=== PATIENT | male | born 1955 | race Caucasian/White ===

== ENCOUNTER → 2019-08-01 11:55 | Outpatient (CLI) | payer BC, SELFPAY ==
--- NOTE | 2019-08-01 | DI.RAD.S_ITS ---
PROCEDURE: XR CHEST 2V INDICATIONS: COPD TECHNIQUE: 2 views of the chest were acquired. COMPARISON: None. FINDINGS: Surgical changes and devices: None. Lungs and pleura: Scattered subsegmental atelectasis and/or scarring. No focal consolidation. No pleural effusions or pneumothorax. Mediastinum: Mediastinal contours are normal. Heart size is normal. Bones and chest wall: No suspicious bony abnormalities. Soft tissues appear unremarkable. IMPRESSION: Scattered atelectasis/scarring. No definite focal consolidation. Dictated by: Merlin Hernandez M.D. on 08/01/2019 at 13:03 Approved by: Merlin Hernandez M.D. on 08/01/2019 at 13:08
== END ==
PROVIDERS: PCP Family Medicine; Visit Provider Family Medicine
DX: J44.9 Chronic obstructive pulmonary disease, unspecified (principal)
CPT/HCPCS: 71046

== ENCOUNTER → 2020-09-10 13:27 | Outpatient (CLI) | payer MEDICARE, SELFPAY ==
--- NOTE | 2020-09-10 | DI.RAD.S_ITS ---
PROCEDURE: XR SHOULDER RT MIN 2V INDICATIONS: BILTERAL SHOULDER PAIN TECHNIQUE: 3 views of the shoulder were acquired. COMPARISON: None. FINDINGS: Bones: No fractures or dislocations. No suspicious bony lesions. Visualized ribs appear intact. There are degenerative changes of the glenohumeral joint with joint space narrowing and subchondral sclerosis. There are also subchondral cystic changes. Soft tissues: No suspicious soft tissue calcifications. IMPRESSION: Degenerative changes of the right shoulder consistent with osteoarthritis. Dictated by: Alex Barnes M.D. on 09/10/2020 at 14:04 Approved by: Alex Barnes M.D. on 09/10/2020 at 14:07
--- NOTE | 2020-09-10 | DI.RAD.S_ITS ---
PROCEDURE: XR SHOULDER LT MIN 2V INDICATIONS: BILTERAL SHOULDER PAIN TECHNIQUE: 3 views of the shoulder were acquired. COMPARISON: None. FINDINGS: Bones: No fractures or dislocations. No suspicious bony lesions. Visualized ribs appear intact. There are degenerative changes of the glenohumeral joint with joint space narrowing and subchondral cystic changes. Soft tissues: No suspicious soft tissue calcifications. IMPRESSION: Degenerative changes of the glenohumeral joint with joint space narrowing and subchondral cystic changes. Dictated by: Alex Barnes M.D. on 09/10/2020 at 14:01 Approved by: Alex Barnes M.D. on 09/10/2020 at 14:03
--- NOTE | 2020-09-10 | DI.RAD.S_ITS ---
PROCEDURE: XR CERVICAL SPINE 2V OR 3V INDICATIONS: BILTERAL SHOULDER PAIN TECHNIQUE: 3 view(s) of the cervical spine were acquired. COMPARISON: None. FINDINGS: Bones: No fractures or dislocations to the T1 level. The lateral masses of C1 appear intact on the odontoid view. No suspicious bony lesions. Severe multilevel degenerative changes are seen, most prominent at C4, C5, and C6. There is disc space narrowing from C3-4 through C6-7, most severe at C4-5. Soft tissues: No prevertebral soft tissue swelling. IMPRESSION: 1. Multilevel degenerative changes. 2. Degenerative disc disease from C3-4 through C6-7, most severe at C4-5. Dictated by: Alex Barnes M.D. on 09/10/2020 at 13:57 Approved by: Alex Barnes M.D. on 09/10/2020 at 14:01
== END ==
PROVIDERS: PCP Family Medicine; Referring Provider Family Medicine; Visit Provider Family Medicine
DX: M54.10 Radiculopathy, site unspecified (principal); M25.511 Pain in right shoulder; M25.512 Pain in left shoulder; M47.812 Spondylosis without myelopathy or radiculopathy, cervical region; M50.31 Other cervical disc degeneration, high cervical region
CPT/HCPCS: 72040; 73030

== ENCOUNTER → 2021-01-25 13:54 | Outpatient (CLI) | payer MEDICARE, SELFPAY ==
--- NOTE | 2021-01-25 | DI.US.S_ITS ---
PROCEDURE: US PERIPH VENOUS LOW EXTREM LT INDICATIONS: Pain in leg, unspecified TECHNIQUE: Real-time imaging, as well as color and pulse Doppler interrogation, were performed of the lower extremity deep veins from the inguinal ligament to the popliteal fossa. COMPARISON: None. FINDINGS: The common femoral, femoral and popliteal veins are normally compressible, and free of intraluminal thrombus. Color and pulse Doppler demonstrate normal phasic intraluminal flow. There is normal augmentation response to distal compression maneuver. IMPRESSION: No deep venous thrombosis identified within the left lower extremity. Dictated by: Tad Huerta Sarath Interpreted: Misael Hamm MD on 01/25/2021 at 14:11 Transcribed by: JASMEET on 01/25/2021 at 14:12 Approved by: Misael Hamm M.D. on 01/25/2021 at 17:00
== END ==
PROVIDERS: PCP Family Medicine; Referring Provider Family Medicine; Visit Provider Family Medicine
DX: M79.605 Pain in left leg (principal)
CPT/HCPCS: 93971

== ENCOUNTER → 2021-07-31 13:33 | Outpatient (CLI) | payer MEDICARE, SELFPAY ==
--- NOTE | 2021-07-31 13:35 | DI.RAD.S_ITS ---
PROCEDURE: XR HIP W PEL IF DONE RT 2V INDICATIONS: RIGHT HIP PAIN TECHNIQUE: AP pelvis with lateral view(s) of the right hip(s). COMPARISON: None. FINDINGS: Bones: No fractures or dislocations. Pelvic ring appears intact. No suspicious bony lesions. Soft tissues: The visualized bowel gas pattern is normal. No suspicious soft tissue calcifications. IMPRESSION: No significant abnormality. Dictated by: Larry Mcclendon M.D. on 07/31/2021 at 14:36 Approved by: Larry Mcclendon M.D. on 07/31/2021 at 14:36
--- NOTE | 2021-07-31 13:35 | DI.RAD.S_ITS ---
PROCEDURE: XR LUMBAR SPINE 2-3V INDICATIONS: LOW BACK PAIN TECHNIQUE: 3 views of the lumbar spine were acquired. COMPARISON: None. FINDINGS: Bones: 5 ahs-vla-rgrzgtb vertebrae are present. There is mild L4-L5 anterolisthesis secondary to facet hypertrophy. There is mild L1-L2 and L3-L4 retrolisthesis secondary to facet hypertrophy. There is approximately 15? of convex left lumbar spine scoliosis. No vertebral body compression fractures. No suspicious bony lesions. Severe D12-L1, L1-L2 and L2-L3 degenerative disc disease. Moderate L3-L4 and L4-L5 degenerative disc disease. Mild L5-S1 degenerative disc disease. Moderate L1-L2, L2-L3, L3-L4, L4-L5 and L5-S1 facet hypertrophy. Soft tissues: Overlying bowel gas pattern is normal. No suspicious soft tissue calcifications. IMPRESSION: 1. Multilevel degenerative disc disease. 2. Multilevel facet arthropathy. 3. Convex left scoliosis. 4. Grade 1 L1-L2, L2-L3 and L4-L5 degenerative spondylolisthesis. 5. No fracture. No acute osseous lesion. If symptoms and/or clinical suspicion for pathology persists, evaluation with MRI should be considered for further assessment. Dictated by: Avril Ibanez MD, PhD on 07/31/2021 at 15:57 Approved by: Avril Ibanez MD, PhD on 07/31/2021 at 15:59
== END ==
PROVIDERS: PCP Family Medicine; Referring Provider Family Medicine; Visit Provider Family Medicine
DX: M51.36 Other intervertebral disc degeneration, lumbar region (principal); M51.37 Other intervertebral disc degeneration, lumbosacral region; M47.816 Spondylosis without myelopathy or radiculopathy, lumbar region; M47.817 Spondylosis without myelopathy or radiculopathy, lumbosacral region; M41.86 Other forms of scoliosis, lumbar region; M43.16 Spondylolisthesis, lumbar region; M25.551 Pain in right hip; M54.50 Low back pain, unspecified
CPT/HCPCS: 72100; 73502

== ENCOUNTER → 2021-09-07 11:20 | Outpatient (CLI) | payer MEDICARE, SELFPAY ==
--- NOTE | 2021-09-07 | DI.MRI.S_ITS ---
PROCEDURE: MR LUMBAR SPINE WO CON INDICATIONS: Spinal stenosis, lumbosacral region TECHNIQUE: Noncontrast sagittal T1 spin echo and T2 fast echo, sagittal STIR, axial T1 and T2 fast spin echo through the lumbar spine. In cases with scoliosis, additional coronal T2 fast spin echo may be performed. COMPARISON: [facility], CR, XR LUMBAR SPINE 2-3V, 07/31/2021, 13:30. FINDINGS: Image quality: Excellent. Alignment and Curvature: There is extensive degenerative change which in PACS alignment. There is mild degenerative retrolisthesis of L1 on L2. Grade 1 degenerative anterolisthesis of L4 on L5 measures 9 mm. There is mild levo curvature centered at L1-L2. Bone Marrow: Marrow is of normal overall signal. No acute vertebral body compression fractures. Spinal Cord: Conus medullaris terminates at the L1 level. Visualized cord demonstrates normal signal and size. Paraspinous Soft Tissues: No paravertebral masses. T12-L1: Severe disc height loss. Mild posterior disc osteophyte complex. Bilateral facet hypertrophy. No significant central canal stenosis. Tbyn-xm-batpvjkg right foraminal narrowing and moderate left foraminal narrowing. L1-L2: Severe disc height loss. Mild retrolisthesis of L1 on L2. Facet hypertrophy. Borderline canal stenosis. Moderate to severe right foraminal narrowing and moderate left foraminal narrowing with bilateral flattening deformity on the exiting bilateral L1 nerve roots. L2-L3: Moderate disc height loss. Posterior disc osteophyte complex. Facet and ligament hypertrophy. Tkpt-it-filcjecr canal stenosis. Moderate right foraminal stenosis with flattening deformity on the exiting right L2 nerve root. Mild left foraminal stenosis. L3-L4: Disc bulge and prominent facet and ligament hypertrophy results in severe canal stenosis. There is moderate right foraminal narrowing and moderate to severe left foraminal narrowing. There is flattening deformity on the exiting right L3 nerve root. There is impingement on the exiting left L3 nerve root. L4-L5: Grade 1 anterolisthesis of L4 on L5. Posterior disc bulge. Prominent bilateral facet and ligament hypertrophy. Marked canal stenosis. Moderate to severe bilateral foraminal narrowing with impingement on the exiting bilateral L4 nerve roots. L5-S1: Disc bulge. Facet hypertrophy. No canal stenosis. Mamz-oc-vjgacunf bilateral foraminal stenosis. IMPRESSION: 1. Extensive degenerative change. Findings include prominent multilevel facet arthropathy. 2. Significant multilevel canal stenosis. Canal stenosis is mild to moderate at L2-L3, severe at L3-L4, and marked at L4-L5. 3. Significant multilevel foraminal narrowing as described above. Dictated by: Jose Flowers M.D. on 09/09/2021 at 8:52 Approved by: Jose Flowers M.D. on 09/09/2021 at 9:23
== END ==
PROVIDERS: PCP Family Medicine; Referring Provider Orthopaedic Surgery; Visit Provider Orthopaedic Surgery
DX: M48.07 Spinal stenosis, lumbosacral region (principal); M47.816 Spondylosis without myelopathy or radiculopathy, lumbar region; M48.061 Spinal stenosis, lumbar region without neurogenic claudication; M51.26 Other intervertebral disc displacement, lumbar region
CPT/HCPCS: 72148

== ENCOUNTER → 2021-10-04 10:36 | Outpatient (CLI) | payer MEDICARE, SELFPAY ==
[2021-10-04 11:47] LABS: Add Manual Diff / Slide Review NO; Basophils Absolute Auto 100 /uL (0-100); Basophils Percent Auto 1.3 % (0-2); Eosinophils Absolute Auto 0 /uL (0-450); Eosinophils Percent Auto 1.3 % (2-4); Hematocrit 39.4 % (41-53); Hemoglobin 13.8 g/dL (13.5-17.5); Lymphocytes Absolute Auto 1100 /uL (1100-4500); Lymphocytes Percent Auto 29.5 % (25-40); Mean Corpuscular HGB Conc 35.1 % (30-36); Mean Corpuscular Hemoglobin 33.6 PG (26-34); Mean Corpuscular Volume 95.9 fL (80-100); Monocytes Absolute Auto 500 /uL (0-900); Monocytes Percent Auto 13.9 % (3-14); Neutrophils Absolute Auto 2000 /uL (1500-7000); Platelet Count 280 X10^3/uL (150-400); Red Blood Cell Count 4.11 X10^6/uL (4.5-5.9); Red Cell Distribution Width 13.4 % (11.6-14.8); White Blood Cell Count 3.8 X10^3/uL (4.5-11.0)
[2021-10-04 12:25] LABS: BUN Creatinine Ratio 24.4 (6-22); Blood Urea Nitrogen 20 mg/dL (9-20); Calcium 9.6 mg/dL (8.4-10.2); Carbon Dioxide 29 mmol/L (22-32); Chloride 99 mmol/L (98-107); Estimated Glomerular Filt Rate > 60.0 mL/min (>60); Glucose 84 mg/dL (80-110); HEMOLYSIS < 15 (0-50); Potassium 4.7 mmol/L (3.4-5.1); Sodium 135 mmol/L (137-145)
== END ==
PROVIDERS: PCP Family Medicine; Referring Provider Orthopaedic Surgery Orthopaedic Surgery of the Spine; Visit Provider Orthopaedic Surgery Orthopaedic Surgery of the Spine
DX: Z01.818 Encounter for other preprocedural examination (principal); Z01.812 Encounter for preprocedural laboratory examination
CPT/HCPCS: 36415; 80048; 85025; 93005; 93010

== ENCOUNTER → 2021-10-08 12:25 | Outpatient (CLI) | payer MEDICARE, SELFPAY ==
--- NOTE | 2021-10-08 | DI.CT.S_ITS ---
PROCEDURE: CT LUMBAR SPINE WO CON INDICATIONS: Spinal stenosis, lumbar region TECHNIQUE: Noncontrast 3 mm thick sections acquired from the T12 level to the sacrum. Sagittal and coronal reformats were constructed. Additional 0.8 mm axial images were reformatted for intraoperative localization. For radiation dose reduction, the following was used: automated exposure control. COMPARISON: [facility], MR, MR LUMBAR SPINE WO CON, 09/07/2021, 11:35. [facility], CR, XR LUMBAR SPINE 2-3V, 07/31/2021, 13:30. FINDINGS: Image quality: Excellent. Bones: No acute vertebral body compression fractures. No suspicious lytic or blastic bony lesions. No pars defects. Mild levoconvex scoliotic curvature is noted. There is minimal retrolisthesis seen at T12-L1. Mild retrolisthesis is seen at L1-L2. Minimal retrolisthesis is seen at L2-L3. Mild grade 1 anterolisthesis is seen at L4-L5, without associated pars defects. T12-L1: Moderate to severe loss of disc height is seen. Endplate irregularity and sclerosis can be seen. Bridging endplate osteophytes are seen. Mild to moderate disc bulge is seen. There is moderate left-sided and byoo-th-ypzytojb right-sided neural foraminal narrowing. Mild central canal narrowing is seen. L1-L2: Moderate to severe loss of disc height is seen. Vacuum disc phenomenon is seen at this level. Bridging endplate osteophytes are seen. Endplate irregularity and sclerosis can be seen. Moderate generalized disc bulge is seen. Mild facet joint hypertrophy is seen. There is moderate to severe bilateral neural foraminal narrowing seen, right worse than left. Mild central canal narrowing is seen. L2-L3: Moderate to severe loss of disc height can be seen on the right side. Partially bridging endplate osteophytes are seen on the right side. Vacuum disc phenomenon is seen at this level. At least moderate disc bulge is seen, which is eccentric to the right. There is a superimposed central disc protrusion. Posteriorly projected endplate osteophytes are seen. There is moderate to severe right-sided and at least moderate left-sided neural foraminal narrowing. At least moderate central canal narrowing is seen at this level. L3-L4: At least moderate loss of disc height can be seen on the left side. Endplate irregularity and sclerosis can be seen. Vacuum disc phenomenon is seen at this level. There is at least moderate disc bulge. At least moderate facet hypertrophy is seen. There is moderate to severe bilateral neural foraminal narrowing. There is moderate to severe central canal narrowing seen at this level. L4-L5: There is at least moderate loss of disc height. Vacuum disc phenomenon is seen at this level. Prominent facet hypertrophy is seen. There is moderate to severe bilateral neural foraminal narrowing. Moderate to severe central canal narrowing is seen at this level. L5-S1: The disc height is well preserved. At least moderate disc bulge is seen, which is eccentric to the left. Partially bridging endplate osteophytes are seen on left side, as on series 5, image 24. There is moderate left-sided and mild right-sided neural foraminal narrowing. Mild central canal narrowing is seen. Soft tissues: No retroperitoneal masses or hematomas. Visualized aorta is normal in caliber. IMPRESSION: Multiple levels of lumbar spine degenerative change are seen, which are overall worst at L3-L4 and L4-L5. The degenerative changes are overall better seen on the recent prior MRI examination. Dictated by: Jefferson Hall M.D. on 10/08/2021 at 13:02 Approved by: Jefferson Hall M.D. on 10/08/2021 at 13:11
== END ==
PROVIDERS: PCP Family Medicine; Referring Provider Orthopaedic Surgery Orthopaedic Surgery of the Spine; Visit Provider Orthopaedic Surgery Orthopaedic Surgery of the Spine
DX: M48.062 Spinal stenosis, lumbar region with neurogenic claudication (principal); M47.816 Spondylosis without myelopathy or radiculopathy, lumbar region
CPT/HCPCS: 72131

== ENCOUNTER → 2021-11-22 14:29 | Outpatient (CLI) | payer MEDICARE, SELFPAY ==
[2021-11-22 15:22] LABS: COVID19 -Nasal RAPID Negative (Negative)
== END ==
PROVIDERS: PCP Family Medicine; Visit Provider Family Medicine Sleep Medicine
DX: Z20.822 Contact with and (suspected) exposure to COVID-19 (principal)
CPT/HCPCS: 87635; C9803

== ENCOUNTER 2021-11-26 13:00 | Observation (INO) | payer MEDICARE, SELFPAY ==
[2021-11-20 12:49] VITALS: BMI 28.0
[2021-11-25] VITALS (14 sets, daily range): BP systolic 100–143; BP diastolic 64–89; PULSE 70–101; RESP 10–18; TEMP 36.4–36.7; O2SAT 92–100; BMI 28.0
--- NOTE | 2021-11-25 | DI.RAD.S_ITS ---
PROCEDURE: XR LUMBAR SPINE 2-3V INDICATIONS: L3-4 L4-5 TLIF TECHNIQUE: 2 views of the lumbar spine were acquired. COMPARISON: None. FINDINGS: Bones: Postsurgical changes compatible with L3-L4 and L4-L5 TLIF. Orthopedic hardware is in expected position. Soft tissues: Overlying bowel gas pattern is normal. No suspicious soft tissue calcifications. IMPRESSION: Expected postsurgical change for L3-L4 and L4-L5 TLIF. Dictated by: Avril Ibanez MD, PhD on 11/25/2021 at 17:19 Approved by: Avril Ibanez MD, PhD on 11/25/2021 at 17:25
[2021-11-25] MEDS: LACTATED RINGERS 1,000 ML 84 ML IV ×2 (07:07→09:43)
--- NOTE | 2021-11-25 07:45 | PM.PREOP ---
Pre-operative Note COVID-19 COVID-19 status: Negative Result date/Date tested (Pos, Neg/Pending): 11/24/21 Criteria for continued procedure: Expected advancement of disease process, Possibility delay results in more complex future surgery or treatment, Increased loss of function, Continuing or worsening of significant or severe pain, Deterioration of the patient's condition or overall health and Delay expected to result in less-positive ultimate med/surg outcome Interval Note History & Physical reviewed/Exam performed by Physician: Yes Changes to H&P: No
[2021-11-25] MEDS: CEFAZOLIN 2 GM/20 ML SYRINGE IV ×3 (08:00→23:20)
--- NOTE | 2021-11-25 08:42 | SUR.OPER ---
Prone on spine table, head in foam head support, padded chest and pelvic supports, gel pad at knees, lower legs supported by pillows; nipples, genitalia and toes free of pressure, arms secured on foam padded arm boards at <90 degrees abduction. Tape over blanket at thigh secured to table. Gel pad placed between bilateral heels.
[2021-11-25] MEDS: BUPIVACAINE 0.25% (PF) 60 ML, EPINEPHrine 0.3 MG INJ (08:49)
[2021-11-25] MEDS: BUPIVACAINE LIPOSOME 266 MG/20 ML VIAL INJ (08:49)
--- NOTE | 2021-11-25 12:44 | P.OP_ITS ---
Operative Date/Time/Diagnoses Date of procedure: 11/25/21 Time of procedure: 07:45 Pre-op diagnosis: 1. L4-5 spondylolisthesis 2. L3-4, L4-5 spinal stenosis with neurogenic claudication Post-op diagnosis: same Procedure & Clinicians Procedure: 1. L3-4, L4-5 Postero-lateral and posterior interbody fusion 2. L3-4, L4-5 interbody cage placement. 3. L3-4, L4-5 decompressive laminectomy with bilateral facetecomies 4. L3-4, L4-5 Posterior segmental instrumentation 5. [place] of bone marrow from iliac crest 6. Utilization of microsurgical technique and operating microscope 7. Utilization of robotic assisted navigation Same procedure as scheduled: Yes Indications: Patient has been having chronic back pain and worsening lumbar radiculopathy. Patient failed multiple conservative management with worsening pain weakness and numbness in her lower extremity. Patient has been having difficulty performing activity of daily living. After discussing risks benefits of treatment options, patient elected proceed with surgery. Surgeon: Mohit Chatterjee Videogame Designer: Mimi Sanders Click Yes if Unassisted: No Anesthesia Type: General Operative Notes Closure Type: primary Specimen(s): none sent Prosthetic devices, grafts, tissues, transplants, or devices: Globus CREO MIS screws, Rise cages Applied: catheter Estimated Blood Loss (mL): 250 Blood products transfused: none Procedure in detail: Patient was seen in the preoperative area. Risks and benefits of the surgery was discussed with the patient. Informed consent was obtained from the patient and placed in the chart. Surgical site was marked. Patient was taken to the operative room. General anesthesia was administered. Prophylactic antibiotic was given to the patient less than 30 min before the incision was made. Patient was placed into a prone position on the Deejay table. Patient's back was then prepped and draped in the sterile fashion. Time-out was performed at this time. After patient was prepped and draped, patient's PSIS was palpated and marked bilaterally. Small 1 cm incision was made over the PSIS for placement of the reference probes. Two trocar was placed into the PSIS 1 on each side. The reference probe was attached to the trocar of the reference apparatus. At this time the C-arm imaging was used to confirm AP and lateral of L3, L4-L5 vertebrae and merged the C-arm imaging using the [employer] robotic navigation system with the CT of the lumbar spine. After successful merging was completed and confirmed, skin marker was used to brandy out the skin incision using the [employer] robotic arm. Bilateral incision was made at this time. Pre templated trajectory was used and guided using the [employer] robotic navigation system for bilateral L3 L4, L5 pedicle screw placement. This was done by using the robotic arm to guide the high-speed bur to make a cortical entry point. Next a drill was placed also using the robotic arm and guided using the navigation system drilling partially through bilateral L3, L4, L5 pedicles. Next L3, L4, L5 pedicle screws it was pre templated and measured was placed onto the power compressed air pile driver operator and inserted into the pedicles bilaterally. After all 6 screws were placed C-arm imaging was taken of both AP and lateral to confirm the placement. Excellent placement of the screws were confirmed and a matched precisely with the pre planned screw placement using the navigation system. MARs retractor was inserted using [employer] guidence. Globus MARS retractors was placed inside the incision and docked onto the L3, L4 lamina. Using microsurgical technique and operating microscope, a L3, L4 laminectomy and L3-4, L4-5 facetectomy was performed using a Kerrison rongeur. Patient was found have severe central, lateral recess and neural foramen stenosis which was fully decompressed after the laminectomy and facetectomy. More than 75% of the facets were removed during the process of decompression rendering L3-4, L4-5 level grossly unstable and required a fusion procedure at the same time. The disc space at L3-4, L4-5 was identified, and a total diskectomy was performed at L3-4, L4-5 level. The endplates were decorticated using a rasp and shaver. The total diskectomy and decortication was performed at L3-4, L4-5 level in order to to accomplish a L3-4, L4-5 fusion. The local bone from the laminectomy and facetectomy was saved for local bone grafting. After the total diskectomy and decortication was completed, Trifecta bone graft material was combined with local bone that was harvested earlier. At this time, a separate skin is incision was made over the iliac crest. A Jamshidi needle was inserted into the iliac crest through a separate skin incision. 5 cc of bone marrow aspiration was obtained through the separate skin incision using a Jamshidi needle from the iliac crest. The bone marrow aspiration was combined with local bone and the Trifecta bone grafting material. The bone grafting material was placed into the L3-4, L4-5 interbody space along with expandable cages. One cage each was inserted into the L3-4 L4-5 interbody space along with bone graft material. The cage was expanded to its maximum height using the torque limiting screwdriver. The disc preparation as well as the cage insertion were also performed under navigation guidance. After the cage was placed, AP and lateral C-arm imaging was taken to confirm placement of the cage and excellent position was confirmed. Globus MARS retractor was inserted and docked onto the L3-4, L4-5 posterolateral gutter on the right side. Using the power drill, posterior-lateral decortication was performed at L3-4, L4-5 level until bleeding cortical bone was identified. The remaining bone grafting material was placed into the L3-4, L4-5 posterior lateral gutter he order to accomplish posterolateral fusion at the L3- 4, L4-5 level. At this time the tulips were attached to the L3, L4-L5 pedicle screw shanks. After measuring the length of the rods, they were inserted into the tulips of the pedicle screws and locked in place using locking caps and torque limiting screwdriver bilaterally. Total 6 caps and 2 titanium rods was used in order to complete the posterior instrumentation construct. After all the hardware was placed, and confirmed with AP and lateral C-arm imaging, the wound was then irrigated with sterile normal saline and packed with Ray-Murphy gauze for 3 min to accomplish hemostasis. After the gauze was removed the deep fascia was closed with #1 Vicryl suture. The subcutaneous layer was closed with 2-0 Vicryl. The skin was closed with skin adore. Patient tolerated the procedure well. There were no complications. Neuro monitoring system was used to monitor patient's neurologic status throughout entire procedure. There was no disturbance of the neural monitoring signals throughout the case. Complications: none Post-operative Condition: stable Disposition: PACU Plan for aftercare: Admit to inpatient hospital
[2021-11-25] MEDS: HYDROMORPHONE 2 MG INJ IV ×3 (13:03→13:22)
[2021-11-25] MEDS: hydrOXYzine 50 MG/ML INJ IM (13:29)
[2021-11-25] MEDS: OXYCODONE/ACETAMINOPHEN 5/325 TABLET 1 TAB PO (13:39)
--- NOTE | 2021-11-25 13:58 | SUR.PHASEI ---
Report called to floor, RN informed of puffiness/swelling bilateral back, soft, no noticeable margins; areas checked by Dr. Chatterjee approx 20 minutes ago. VSS. Dozes intermittantly.
--- NOTE | 2021-11-25 14:24 | SUR.PHASEI ---
1315 late entry Patient assisted in turning to right side for position of comfort. Large puffy area left of the dressing, no bruising, no margins, tissue soft, also examined by Isaiah Mishra RN. Lesser puffiness on right side. Will consult Dr. Chatterjee when he is available.
--- NOTE | 2021-11-25 14:27 | SUR.PHASEI ---
1403 Patient taken to room 213, bed down and locked, call light within reach. Back dressing remains CDI, puffy areas shown to RN. VSS Family at bedside. Patient dozing when he wasn't being moved. Patient currently on room air, RN wants to access on RA prior to determining if O2 is needed. 1428 Patient clothing bag taken to the room.
--- NOTE | 2021-11-25 14:29 | SUR.PHASEI ---
one+ liter IV fluid infused in the OR, not scanned
[2021-11-25] MEDS: OXYCODONE IR 5 MG TABLET 10 MG PO ×3 (15:37→22:17)
--- NOTE | 2021-11-25 15:37 | PT-IP ANOTE ---
Received PT orders and reviewed the chart. Met with pt briefly who was quite groggy and reporting 8/10 pain. Plan to follow up Thursday AM for PT evaluation.
[2021-11-25] MEDS: SODIUM CHLORIDE 0.9% 1,000 ML 100 ML IV (15:39)
[2021-11-25] MEDS: POLYVINYL ALCOHOL DROPS 1 DROPS EYE-BOTH ×2 (16:24→19:24)
[2021-11-25] MEDS: ACETAMINOPHEN 325 MG TABLET 650 MG PO (19:21)
[2021-11-25] MEDS: SENNOSIDES 8.6 MG TABLET 17.2 MG PO (21:23)
[2021-11-25] MEDS: DOCUSATE 100 MG CAPSULE PO (21:23)
[2021-11-25] MEDS: hydrOXYzine pamoate 25 MG CAPSULE PO (22:53)
[2021-11-26 00:27] VITALS: BP 111/55; PULSE 88; RESP 18; TEMP 36.7; O2SAT 97
[2021-11-26] MEDS: OXYCODONE IR 5 MG TABLET 10 MG PO ×5 (01:50→20:53)
[2021-11-26] MEDS: SODIUM CHLORIDE 0.9% 1,000 ML 100 ML IV (01:51)
[2021-11-26] MEDS: hydrOXYzine pamoate 25 MG CAPSULE PO ×2 (03:32→15:55)
[2021-11-26 04:30] LABS: Hematocrit 32.1 % (41-53); Hemoglobin 11.3 g/dL (13.5-17.5)
[2021-11-26 05:00] VITALS: BP 119/66; PULSE 76; RESP 18; TEMP 36.6; O2SAT 97
[2021-11-26] MEDS: PANTOPRAZOLE DR 40 MG TABLET PO (05:34)
--- NOTE | 2021-11-26 07:34 | PM.PNPO.1 ---
Subjective Subjective Date Patient Seen: 11/26/21 Time Patient Seen: 07:34 Interval history: Patient is complaining of [id number] low back pain this morning, he rates it a 3 to 4/10. He has just received oxy 10 which is helping significantly this pain. He has been able to work with physical therapy yesterday. He is hoping to be discharged home, likely tomorrow. Exam Vital Signs (past 8 hours): - 11/26/21 00:27 11/26/21 05:00 Temperature 98.0 F 97.8 F Pulse Rate 88 76 Respiratory Rate 18 18 Blood Pressure 111/55 L 119/66 Pulse Oximetry 97 97 Oxygen Delivery Method Room Air Oxygen Flow Rate 0 Narrative Exam Narrative: Pleasant 66-year-old male, resting comfortably in bed, no acute distress. Dressing demonstrates left lateral serosanguineous drainage and mild right lateral serosanguineous drainage. No surrounding erythema or induration. Bilateral lower extremity: Motor functions are grossly intact, sensation is slightly decreased in his left lower extremity as compared to his right, calves are soft and nontender to palpation. Objective Labs Result Diagrams: 11/26/21 04:05 Labs: Laboratory Results - last 24 hr 11/26/21 04:05 Hgb 11.3 L Hct 32.1 L PFSH Medical History Acid reflux Arthritis Easy bruisability Macular degeneration of right eye CHRISTIAN (obstructive sleep apnea) Prostate cancer (2015) Surgical History History of prostatectomy (2015) Hx of bilateral cataract extraction Hx of hernia repair Hx of tonsillectomy S/P epidural steroid injection Social History household members: spouse Smoking Status: Former smoker alcohol intake: current Assessment & Plan Post-op Postoperative Procedures: Procedures Operation Date: 11/25/21 07:45 Actual Procedure Side Surgeon p L3-4, L4-5 TLIF w. posterior instrumentation-Robot Not Applicable Mohit Chatterjee MD Postoperative day: 1 Postoperative status: doing well Postoperative status narrative: Stable status post L3-4, L4-5 TLIF Postoperative plan narrative: -mobilize with PT. Weightbearing as tolerated front wheel walker. Limit bending, lifting, twisting x6 weeks -continue with multimodal pain management, encouraged more frequent use of medication as needed -DC to home, possibly this evening if he does great with physical therapy and pain is manageable, however, likely tomorrow
[2021-11-26] MEDS: DOCUSATE 100 MG CAPSULE PO ×2 (08:27→20:54)
[2021-11-26] MEDS: FISH OIL 1,000 MG CAPSULE 1000 MG PO (08:28)
[2021-11-26] MEDS: LACTOBACILLUS ACIDOPHILUS TABLET 1 EACH PO (08:28)
[2021-11-26 08:37] VITALS: BP 118/72; PULSE 70
--- NOTE | 2021-11-26 09:40 | PT.IIE ---
Current Diagnoses Spondylolisthesis, lumbar region (11/25/21) Spinal stenosis, lumbar region with neurogenic claudication (11/25/21) Surgery Performed Operation Date: 11/25/21 07:45 Actual Procedures p L3-4, L4-5 TLIF w. posterior instrumentation-Robot(Not Applicable) - Mohit Chatterjee MD Medical History (Last Reviewed 11/26/21 @ 07:35 by Mimi Sanders PA-C) Acid reflux Arthritis Easy bruisability Macular degeneration of right eye CHRISTIAN (obstructive sleep apnea) Prostate cancer (2016) Physical Therapy Inpatient Evaluation/Re-Eval M1 PT/OT-IP Prior Functional Status Start: 11/26/21 12:29 Freq: NEEDED Status: Active Protocol: Document 11/26/21 09:40 AB (Rec: 11/26/21 12:42 AB [id number]) Medical Review Prior Functional Status Medical History Reviewed Yes Communication able to make needs known Mobility and Gait pt stated that he is independent with all moblities and ambulation without AD; stated that he is very active Social History Household Members spouse Living Arrangements House Number of Floors (Floors) Two Floors Number of Stairs To Enter/Railing? pt stated that he does not have any steps to enter the house but has 15 steps L rail to get up to the main living area Home Environment Standard Height Toilet,High Toilet,Walk in Shower,Built-In Shower Seat Home Equipment Front Wheel Walker,Raised Toilet Seat w/Armrests,Hand Held Shower M2 PT-IP Current Condition Start: 11/26/21 12:29 Freq: NEEDED Status: Active Protocol: Document 11/26/21 09:40 AB (Rec: 11/26/21 12:42 AB [email or web address]) Physical Therapy Current Condition Current Condition Evaluation Date 11/26/21 Treatment Diagnosis s/p L3-4, L4-5 TLIF; difficulty in walking Onset Date 11/25/21 M3 PT-IP Subjective Start: 11/26/21 12:29 Freq: NEEDED Status: Active Protocol: Document 11/26/21 09:40 AB (Rec: 11/26/21 12:42 AB [email or web address]) Subjective Physical Therapy Visit Type Type Initial Evaluation Visit Start Time 09:40 Visit Stop Time 10:15 Total Visit Minutes 35 Number of FIBER MACHINE TENDER Visits 0 Physical Therapy Visit Comments Patient Comments agreeable to do PT Therapy Pain Assessment Pain When Pain Assessed At Rest Pain Present Pain Present Pain Reported Location Lower Back Intensity 3 Scale Used 4-5/10 with mobility Pain Behaviors Guarding Pain Management Techniques Distraction,Re-positioning, Timing of Activity with Medications M4 PT-IP Mobility and Gait Start: 11/26/21 12:29 Freq: NEEDED Status: Active Protocol: Document 11/26/21 09:40 AB (Rec: 11/26/21 12:42 AB [id number]) PT-Bed Mobility Assessment Rolling Type of Rolling Log Rolling Level of Assist Standby Assistance Supine to Sit Supine to Sit Minimal Assistance PT-Transfer Assessment Sit to and From Stand Sit to and from Stand Maximum Assistance,1 Person Assistance,Use of Upper Extremities Equipment Transfer Assistive Device Gait Belt,Front Wheeled Walker Orthotic/Prosthetic Devices or Brace: No Transfers Transfer Destination Chair Transfer Technique Stand Step Pivot Transfer Ability Level of Assist Maximum Assistance,1 Person Assistance,Use of Upper Extremities Comments Mobility Comments educated pt on back precautions and log roll bed mobility. pt completed log roll supine <>sit min A and cues. pt ablet o sit on EOB SBA. completed sit to stand max A and max cues. (+) unsteadiness completed step transfer to chair max A x 1 and max cues with (+) L knee buckling during transfers requireing max A for recovery and steadiness. educated pt on quads activation during standing/ambulation. completed sit to stand from the chair max A and cues and ambulated in room ~ 15 ft using FWW max A and max cues. (+) L knee buckling x 2. pt agreed to stay up on the chair . positioned on the chair. educated on LE exercises. call light and table placed within reach. Gait Assessment Gait Gait Assistance Required: Maximum Assistance Distance (Feet) 15 Able to Maintain Weight Bearing Status Yes During Gait Assistive Devices Assistive Device Gait Belt,Front Wheeled Walker Orthotic/Prosthetic Devices or Brace: No Gait Deviations General Gait Pattern Antalgic,Decreased Stride Length Factors Limiting Gait Function Factors Limiting Gait Function Decreased Activity Tolerance, Decreased Strength,Limited Range of Motion,Pain,Poor Balance,Poor Safety Awareness PT-Balance Assessment Sitting Balance and Reactions Static Sitting Balance Ability Good Dynamic Sitting Balance Ability Good Standing Balance and Reactions Static Standing Balance Ability Poor Dynamic Standing Balance Ability Poor Device Used FWW M5 PT-IP Objective Assessments Start: 11/26/21 12:29 Freq: NEEDED Status: Active Protocol: Document 11/26/21 09:40 AB (Rec: 11/26/21 12:42 AB [id number]) Orientation Orientation/Cognition Level of Alertness Alert Orientation Name,Place,Situation Safety Awareness Decreased Safety Awareness Memory Description No Deficits Noted Gross Range of Motion Lower Extremity ROM Assessment Within Functional Limits Strength Lower Extremity Strength Assessment Bilaterally Impaired Comments Strength Comments LLE: 4-/5 RLE: 3+/5 Muscle Tone Muscle Tone WNL Yes M6 PT-IP Treatment Start: 11/26/21 12:29 Freq: NEEDED Status: Active Protocol: Document 11/26/21 09:40 AB (Rec: 11/26/21 12:42 AB [id number]) Physical Therapy Treatment Education Education Provided Precautions,Weight Bearing Status,Post-Op Packet,Safety M7 PT-IP Assessment and Plan Start: 11/26/21 12:29 Freq: NEEDED Status: Active Protocol: Document 11/26/21 09:40 AB (Rec: 11/26/21 12:42 AB [id number]) PT Summary Assessment and Plan Potential Rehabilitation Potential Fair Status of Condition at Evaluation Evolving Summary Impairments Pain,ROM,Strength,Balance, Coordination,Sensation,Tone, Cognition,Bed Mobility, Transfers,Gait,Activity Tolerance Assessment Summary pt requiring max A with mobility using FWW with (+) L knee buckling during standing and ambulation. caregiver training set up for tomorrow at 10 am. will continue to assess progress. Goals Bed Mobility Goal Independent Transfer Goal Independent,Front Wheeled Walker Gait Goal Independent,Front Wheel Walker Gait Distance 200 Other Goals up/down 15 steps L rail ascending SBA Days to Meet Goals 10 Frequency of Treatment Frequency Of Treatment Twice a Day Treatment Plan Physical Therapy Treatment Plan Bed Mobility Training,Transfer Training,Gait Training, Therapeutic Exercise,Balance Retraining,Post Op Education, Discharge Planning,Hot or Cold Pack,Neuromuscular Re-ed, Coordination Retraining,Manual Therapy Other Recommendations and Next Treatment caregiver trainin11/27/21 @ [facility] 10 am Precautions Lumbar Precautions Log Roll,No Twisting,Limit Bending,Lifting Restriction of 10 lbs,Gait Belt above Incisional Area Recommendations To Nursing Amount of Assist Needed 2 Person Assist Discharge Recommendations PT Discharge Recommendations Home with 24/7 Assist Available,Home Health,SNF Rehab,Home vs SNF Transportation Needs at Discharge Private Vehicle,Wheelchair/ Cabulance
[2021-11-26 11:52] VITALS: BP 126/64; PULSE 71; RESP 18; O2SAT 98
--- NOTE | 2021-11-26 12:03 | OT.IP.EVAL ---
Current Diagnoses Spondylolisthesis, lumbar region (11/25/21) Spinal stenosis, lumbar region with neurogenic claudication (11/25/21) Surgery Performed Operation Date: 11/25/21 07:45 Actual Procedures p L3-4, L4-5 TLIF w. posterior instrumentation-Robot(Not Applicable) - Mohit Chatterjee MD Past Medical History (Last Reviewed 11/26/21 @ 07:35 by Mimi Sanders PA-C) Acid reflux Arthritis Easy bruisability History of prostatectomy (2015) Hx of bilateral cataract extraction Hx of hernia repair Hx of tonsillectomy Macular degeneration of right eye [facility]RISTIAN (obstructive sleep apnea) Prostate cancer (2016) S/P epidural steroid injection Surgical History (Last Reviewed 11/26/21 @ 07:35 by Mimi Sanders PA-C) History of prostatectomy (2015) Hx of bilateral cataract extraction Hx of hernia repair Hx of tonsillectomy S/P epidural steroid injection Occupational Therapy Inpatient Evaluation/Re-Eval M1 PT/OT-IP Prior Functional Status Start: 11/26/21 12:05 Freq: NEEDED Status: Active Protocol: Document 11/26/21 11:34 [facility] (Rec: 11/26/21 12:22 [facility] [id number]) Medical Review Prior Functional Status Medical History Reviewed Yes Communication Independent Mobility and Gait Pt states able to walk 3.5 miles daily 6x/wk. Activities of Daily Living and IADL's Pt states was completely independent with all his ADl and IADL, however would really be in pain the next couple of days after mowing the lawn and other chores at home Social History Household Members spouse Living Arrangements House Number of Floors (Floors) Two Floors Number of Stairs To Enter/Railing? 15 steps total with 3 steps with left rail, landing, and then another 12 steps with left rail to the upstairs. Pt states able to stay on the main level if needed as has a full bath there as well. Home Environment Standard Height Toilet,Walk in Shower Home Equipment Front Wheel Walker,Raised Toilet Seat w/Armrests,Hand Held Shower Additional Social History Comment Built in seat upstairs and would benefit from shower chair for downstairs bathroom. Pt states that his is able to assist but not able to do much lifting. M2 OT-IP Current Condition Start: 11/26/21 12:05 Freq: Status: Active Protocol: Document 11/26/21 11:34 [facility] (Rec: 11/26/21 12:22 [facility] [id number]) Occupational Therapy Current Condition Current Condition Evaluation Date 11/26/21 Treatment Diagnosis S/p L3-4, L4-5, decreased mobility Diagnosis Onset Date 11/25/21 Post Operative Precautions Lumbar Precautions Log Roll,No Twisting,Limit Bending,Lifting Restriction of 10 lbs,Gait Belt above Incisional Area M3 OT- IP Subjective and Pain Start: 11/26/21 12:05 Freq: Status: Active Protocol: Document 11/26/21 11:34 [facility] (Rec: 11/26/21 12:22 [facility] [id number]) OT- Subjective Occupational Therapy Visit Type Type Initial Evaluation Visit Start Time 11:34 Visit Stop Time 12:03 Total Visit Minutes 37 Occupational Therapy Visit Comments Patient Comments Pt agreed to get up to the recliner for lunch. Patient/Caregiver Goals TO go home. OT Pain Assessment Pain When Pain Assessed At Rest Pain Present Pain Present Pain Reported Location Lower Back Intensity 4 Scale Used Numeric (0 - 10) M4 OT- IP ADL's Start: 11/26/21 12:05 Freq: Status: Active Protocol: Document 11/26/21 11:34 [facility] (Rec: 11/26/21 12:22 [facility] [id number]) OT [id number] Comments OT Self-Feeding Comments NOt at meal time. OT ADL-Grooming General Evaluation Grooming Ability Standby Assistance Areas Needing Assistance Face Washing OT ADL-Oral Care Comments Oral Care Comments Pt not wanting to do at this time. Able to educated pt of hinging at his hips to spit or just spit into a cup would be best to follow his back precautions. OT ADL-Dressing General Eval Lower Body Dressing Ability Maximum Assistance Areas Needing Assistance Socks Comments OT Dressing Comments At this time due to decreased balance, pt will needing assist to help get his pants up over his hips and use of LB dressing equipment to assist. Pt able to practice use of solar energy installation manager and sock aid to bon/doff his socks. Pt states to order a sock aid for home use. OT ADL-Toileting Comments OT Toileting Comments Pt not having to go. Spoke on use of wet ones to assist with hygiene needs and that standing will probably be easier for wiping when able to stand better. OT ADL-Bathing Comments OT Bathing Comments Pt will benefit from a shower chair. M5 OT- IP IADL's Start: 11/26/21 12:05 Freq: Status: Active Protocol: Document 11/26/21 11:34 [facility] (Rec: 11/26/21 12:22 [facility] [id number]) OT-Instrumental Activities of Daily Living Home Safety Awareness Home Safety Comments Pt will be at home to assist pt for needs. M6 OT- IP Functional Cognition Start: 11/26/21 12:05 Freq: Status: Active Protocol: Document 11/26/21 11:34 [facility] (Rec: 11/26/21 12:22 [facility] [id number]) Cognitive Factors Limiting Selfcare Function Cognitive Ability Level of Alertness Alert Patient Orientation Name,Age,Birthday,Month,Date, Year,Day of Week,Place, Situation Attention Span Ability Capable of Focused Attention, Capable of Sustained Attention Ability to Follow Commands Able to Follow One Step Commands Cognitive Comments Cognitive Assessment Comments Pt able to recall his back precautions and needing cues to push up from the bed to stand. Pt needing cues to get his legs off the bed and turning over even to get his weight on his right hip so able to push up easier and being sure not to twist. OT- Vision and Hearing OT- Hearing Assessment OT- Hearing Assessment WFL OT- Vision Assessment Visual Acuity Glasses All The Time M7 OT- IP Mobility and Balance Start: 11/26/21 12:05 Freq: Status: Active Protocol: Document 11/26/21 11:34 [facility] (Rec: 11/26/21 12:22 [facility] [id number]) OT- Bed Mobility Assessment Rolling Type of Rolling Roll to Right Level of Assistance Standby Assistance Supine to Sit Supine to Sit Assist Contact Guard Assistance OT-Transfer Assessment Sit to and From Stand Sit to and from Stand Maximum Assistance Transfers Transfer Ability Moderate Assistance Technique Transfer Destination Bed,Chair Transfer Technique Stand Step Pivot Devices Transfer Assistive Devices Gait Belt,Front Wheeled Walker Comments Mobility Comments MAXAX1 to stand and pt needing cues to straighten and also assist to come to stand. Once on his feet able to move slowly to transfer to the recliner. Pt states his legs feel a bit numb, nursing present and aware. OT- Balance Assessment Sitting Balance and Reactions Static Sitting Balance Ability Good Dynamic Sitting Balance Ability Fair Standing Balance and Reactions Static Standing Balance Ability Poor Dynamic Standing Balance Ability Poor M8 OT- IP Objective Assessments Start: 11/26/21 12:05 Freq: Status: Active Protocol: Document 11/26/21 11:34 [facility] (Rec: 11/26/21 12:22 [facility] [id number]) OT-Muscle Tone Assessment Muscle Tone WNL Yes M9 OT- IP Assessment and Plan Start: 11/26/21 12:05 Freq: Status: Active Protocol: Document 11/26/21 11:34 [facility] (Rec: 11/26/21 12:22 [facility] [id number]) OT Summary Assessment and Plan Potential Rehabilitation Potential Good Analytic Complexity at Evaluation Low Summary OT Impairments Pain,Strength,Balance, Functional Mobility,Grooming, Dressing,Toileting,Bathing, Toilet Transfers,Shower Transfers,Activity Tolerance Progress Towards Goals Slow Progress due to Pain,Slow Progress due to Medical Issues,Slow Progress due to Activity Tolerance Assessment Summary Pt low complexity and main barriers are having difficulty to come to stand due to pain and weakness, needing extensive assist for ADL and mobility needs. Pt hoping to go home with his to assist however, pt states his is unable to do much lifting. Therefore pending progress and caregiver training. Pt to go home with 24/7 assist and home health versus short skilled rehab. Pt 's coming for caregiver training tomorrow at 10AM for PT and to do showering afterwards. Goals Grooming Goal Independent Dressing Goal Independent Toileting Goal Independent Bathing Goal Independent Toilet Transfer Goal Independent Shower Transfer Goal Independent Patient/Caregiver Education Goal Demonstrate Post-Op Precautions,Caregiver Independent Assisting Patient Days to Meet Goals 10 Frequency of Treatment Frequency Of Treatment Once a Day Treatment Plan OT Treatment Plan ADL Training,Functional Cognition Training,Functional Mobility,Patient/Family Education,Discharge Planning Discharge Recommendations SNF at this time- however pending progress OT Discharge Recommendations Home with 24/7 Assist Available,Home Health,SNF Rehab,Home vs SNF Home Equipment Needs shower chair Transportation Needs at Discharge Private Vehicle,Wheelchair/ Cabulance
--- NOTE | 2021-11-26 14:32 | PT.IPTN ---
Current Diagnoses Spondylolisthesis, lumbar region (11/26/21) Spinal stenosis, lumbar region with neurogenic claudication (11/26/21) Surgery Performed Operation Date: 11/25/21 07:45 Actual Procedures p L3-4, L4-5 TLIF w. posterior instrumentation-Robot(Not Applicable) - Mohit Chatterjee MD Physical Therapy Treatment Note M2 PT-IP Current Condition Start: 11/26/21 12:29 Freq: NEEDED Status: Active Protocol: Document 11/26/21 09:40 AB (Rec: 11/26/21 12:42 AB [id number]) Physical Therapy Current Condition Current Condition Evaluation Date 11/26/21 Treatment Diagnosis s/p L3-4, L4-5 TLIF; difficulty in walking Onset Date 11/25/21 M3 PT-IP Subjective Start: 11/26/21 12:29 Freq: NEEDED Status: Active Protocol: Document 11/26/21 14:14 KS (Rec: 11/26/21 14:47 KS [id number]) Subjective Physical Therapy Visit Type Type Treatment Note Visit Start Time 14:14 Visit Stop Time 14:32 Total Visit Minutes 18 Number of PLUMBING MECHANIC Visits 1 Physical Therapy Visit Comments Patient Comments agreeable to do PT Therapy Pain Assessment Pain When Pain Assessed During Mobility Pain Present Pain Present Pain Reported Location Lower Back Intensity 6 Scale Used Numeric (0 - 10) Pain Behaviors Guarding Pain Management Techniques Distraction,Re-positioning M4 PT-IP Mobility and Gait Start: 11/26/21 12:29 Freq: NEEDED Status: Active Protocol: Document 11/26/21 14:14 KS (Rec: 11/26/21 14:47 KS [id number]) PT-Bed Mobility Assessment Rolling Type of Rolling Log Rolling Level of Assist Standby Assistance Supine to Sit Supine to Sit Contact Guard Assistance Sit to Supine Sit to Supine Minimal Assistance,1 Person Assistance Scooting Scooting to Edge of Bed Standby Assistance PT-Transfer Assessment Sit to and From Stand Sit to and from Stand Moderate Assistance,1 Person Assistance,Use of Upper Extremities Equipment Transfer Assistive Device Gait Belt,Front Wheeled Walker Orthotic/Prosthetic Devices or Brace: No Transfers Transfer Destination Bed Transfer Technique Pt ambulated w/ FWW Transfer Ability Level of Assist Moderate Assistance,1 Person Assistance,Use of Upper Extremities Comments Mobility Comments Pt in bed upon arrival and agreeable to participate w/ PT . Able to recall 2/3 precautions (no lifting). SBA for logroll and CGA for sup<> sit, SBA for scooting EOB. Pt sit<>stand w/ FWW Mod A. He then ambulated ~40 ft in room w/ FWW and Min A and reported 6/10 pain w/ ambulation. Decreased stride and foot clearance w/ 1x positive L knee buckling. Pt reported fatigue and requested to return to bed. He was able to tolerate ankle pumps and quad sets before requesting to be done for the day, Min A for LE elevation into bed for sit<> sup. Pt left in bed w/ all needs in reach. Gait Assessment Gait Gait Assistance Required: Minimum Assistance,1 Person Assist Distance (Feet) 40 Able to Maintain Weight Bearing Status Yes During Gait Assistive Devices Assistive Device Gait Belt,Front Wheeled Walker Orthotic/Prosthetic Devices or Brace: No Gait Deviations General Gait Pattern Antalgic,Decreased Stride Length Factors Limiting Gait Function Factors Limiting Gait Function Decreased Activity Tolerance, Decreased Strength,Limited Range of Motion,Pain,Poor Balance,Poor Safety Awareness Comments Gait Comments Please refer to mobility section for details. Stair Climbing Assessment Comments Stair Climbing Comments Not assessed - pt has 15 steps at home but does not need to complete them to access main level, shower, etc. PT-Balance Assessment Sitting Balance and Reactions Static Sitting Balance Ability Good Dynamic Sitting Balance Ability Good Standing Balance and Reactions Static Standing Balance Ability Fair Dynamic Standing Balance Ability Poor Device Used FWW M5 PT-IP Objective Assessments Start: 11/26/21 12:29 Freq: NEEDED Status: Active Protocol: Document 11/26/21 09:40 AB (Rec: 11/26/21 12:42 AB [id number]) Orientation Orientation/Cognition Level of Alertness Alert Orientation Name,Place,Situation Safety Awareness Decreased Safety Awareness Memory Description No Deficits Noted Gross Range of Motion Lower Extremity ROM Assessment Within Functional Limits Strength Lower Extremity Strength Assessment Bilaterally Impaired Comments Strength Comments LLE: 4-/5 RLE: 3+/5 Muscle Tone Muscle Tone WNL Yes M6 PT-IP Treatment Start: 11/26/21 12:29 Freq: NEEDED Status: Active Protocol: Document 11/26/21 14:14 KS (Rec: 11/26/21 14:47 KS [id number]) Physical Therapy Treatment Exercises Exercises Ankle Pumps,Quad Sets Education Education Provided Precautions,Weight Bearing Status,Post-Op Packet,Safety M7 PT-IP Assessment and Plan Start: 11/26/21 12:29 Freq: NEEDED Status: Active Protocol: Document 11/26/21 14:14 KS (Rec: 11/26/21 14:47 KS [id number]) PT Summary Assessment and Plan Potential Rehabilitation Potential Fair Status of Condition at Evaluation Evolving Summary Impairments Pain,ROM,Strength,Balance, Coordination,Sensation,Tone, Cognition,Bed Mobility, Transfers,Gait,Activity Tolerance Assessment Summary Pt showed improvement w/ bed mobility and sit<>stand. SBA for logroll, Min A for LE elevation for sit<>Sidelying, Mod A for sit<>Stand and Min A for 40 ft ambulation w/ FWW, 1x L knee buckling. Pt limited by pain and low activity tolerance. Will continue to progress. Caregiver training scheduled for 10 am tomorrow . Goals Bed Mobility Goal Independent Transfer Goal Independent,Front Wheeled Walker Gait Goal Independent,Front Wheel Walker Gait Distance 200 Other Goals up/down 15 steps L rail ascending SBA Days to Meet Goals 10 Frequency of Treatment Frequency Of Treatment Twice a Day Treatment Plan Physical Therapy Treatment Plan Bed Mobility Training,Transfer Training,Gait Training, Therapeutic Exercise,Balance Retraining,Post Op Education, Discharge Planning,Hot or Cold Pack,Neuromuscular Re-ed, Coordination Retraining,Manual Therapy Other Recommendations and Next Treatment caregiver trainin11/27/21 @ [facility] 10 am Precautions Lumbar Precautions Log Roll,No Twisting,Limit Bending,Lifting Restriction of 10 lbs,Gait Belt above Incisional Area Recommendations To Nursing Amount of Assist Needed 2 Person Assist Discharge Recommendations PT Discharge Recommendations Home with / Assist Available,Home Health,SNF Rehab,Home vs SNF Transportation Needs at Discharge Private Vehicle,Wheelchair/ Cabulance
--- NOTE | 2021-11-26 16:51 | CM.DPC ---
DCP/Assessment: Reviewed chart. Patient is a 66yr male admitted to [facility] for spinal surgery. PCP is Dr. León. Primary payor: 1)[employer]. Met with patient explained CM/SW role. Patient reports that he hopes to d/c home tomorrow 4-6. Patient resides with his spouse and has no anticipated d/c planning needs. Patient reports that he is completely I in all ADL's. Spouse will be here in AM to do caregiver training. Patient already has home walker. P: Home when stable. KJS Discharge Planning/Care Management CM Discharge Assessment Start: 11/26/21 16:49 Freq: Status: Active Protocol: Document 11/26/21 16:49 KJS (Rec: 11/26/21 16:51 KJS [id number]) Discharge Planning Assessment Assigned Grand Scribe ALE Escobar Contact Information Yesenia Guzman (spouse) # Advance Directives? Yes Advance Directives on File No History Provided By Patient,Medical Record Prior Living Arrangements House Household Members spouse Type of transporation used prior to Drives own vehicle admit Barriers to Discharge No Transportation Arrangement Family Referrals Initiated None needed Whiteboard Updated in Patient Room with Yes name and ext. # of Grand Scribe Review Status In Process Next Review Type Continued Stay Review Pre-Anesthesia Assessment Start: 11/20/21 12:49 Freq: Status: Complete Protocol: Document 11/20/21 12:49 CAB (Rec: 11/20/21 13:42 CAB [id number]) Pre-Anesthesia Assessment Patient Information Reviewed Via Phone Assessment Assessment Completed With Patient H&P Completed Within 30 Days Yes Diagnostic Results BMP/CMP,CBC Comment Labs/ECG @ [facility] 10/04/21, COVID screen @ 11/22/21 Primary Care Provider Julius León Seen Specialist in Last 12 Months Yes Specialist Seen Orthopedist Primary Language [place] Computer Networking Instructor Required No Height 180.34 cm Weight 91.172 kg Body Mass Index (BMI) 28.0 Hearing Ability Normal Visual Assist Glasses Dentition Type Teeth, Natural Present,Teeth, Missing Barriers to Learning None Hx Anesthesia Reactions No Hx Family Anesthesia Reaction No Hx Malignant Hyperthermia No Hx Blood Transfusions No Anesthesia Review Requested No alcohol intake current alcohol intake frequency a few times a week Smoking Status Former smoker how long ago did patient quit smoking Quit 2007 Substance Use Type does not use Pain Present Pain Reported Musculoskeletal Symptoms Abnormal Gait,Back Pain, Difficulty Walking,Joint Pain, Radiating Pain into Limb History of Falling (Recent or History of Yes ) Patient is completely paralyzed or No completely immobile Mental Status Oriented to own ability Comment Pt still walks 3 miles/day, but has balance issues Is patient on oxygen? No Does patient have ELIZONDO/SOB No Hx Sleep Apnea No Currently Taking a Beta Kristal No Can You Climb a Flight of Stairs Without Yes SOB Hx Chest Pain No Hx SOB No Hx Syncope or Dizziness No Anti-Coagulant Therapy No Has a Coin Teller No Cardiac Testing No Hx Pacemaker/ICD No Pacemaker Rep Required? No Cardiac Clearance Received Not Applicable Diet Type At Home Regular dysphagia No Gastrointestinal Symptoms Reflux Urinary Catheter Present No Hx Urinary Self Catheterization No Diabetes No Hx Drug Resistant Organism No Presence of External or Internal Medical Yes: Bilat eye IOLs Devices Have you had any close contact with Yes: Pt had Covid 04/2021 someone diagnosed with COVID-19? Are you experiencing any of these No symptoms symptoms? Received a COVID vaccine? Yes: Booster following Covid Received all doses? Yes Marital Status Lives With spouse Prior Living Arrangements House Number of Floors (Floors) Two Floors Support System Spouse Does the Patient Have Assistance After Yes Surgery Patient Discharge Plan Description Return Home Comment Pt advised at least two day length of stay per surgeon Feels Safe in Current Environment Yes Been Physically Hurt or Threatened By a No Person in Current Environment Do you have thoughts of harming yourself None or others? Are you currently considering suicide? No Do you have a plan to hurt yourself or No Plan others? Do You Have Any Spiritual Beliefs That No May Affect Your HC Choices? Do You Have Any Cultural Practices That No May Affect Your HC Choices? Comment Thomas Who Can We Speak to About Patient's Care Family, friends Identifying Code for Release of Patient Declines to issue Information Health Care Proxy/Next of Kin Yesenia () Health Care Proxy Emergency Contact Name Yesenia () Emergency Contact Advance Directives? Yes Advance Directives on File No Requested Patient Bring Advanced Yes Directives DOS Power of Threader Operator Yes Power of Threader Operator Name Yesenia () Power of Threader Operator PAC Instructions Durable medical equipment, Medications to take/avoid, Nasal antibiotic,No ETOH/ petroleum product on skin DOS, NPO,Post-op transportation,Pre -surgical wash,Sensory aids, Sturdy shoes/comfortable clothes,Do not bring valuables and remove jewelry
[2021-11-26 17:00] VITALS: BP 131/69; PULSE 86; RESP 18; TEMP 36.7; O2SAT 97
[2021-11-26] MEDS: SENNOSIDES 8.6 MG TABLET 17.2 MG PO (20:53)
[2021-11-26 22:00] VITALS: BP 120/71; PULSE 86; RESP 17; TEMP 37.2; O2SAT 95
[2021-11-27] MEDS: OXYCODONE IR 5 MG TABLET 10 MG PO ×3 (00:45→09:02)
[2021-11-27 02:00] VITALS: BP 132/67; PULSE 89; RESP 17; TEMP 37.1; O2SAT 94
[2021-11-27] MEDS: ACETAMINOPHEN 325 MG TABLET 650 MG PO (04:38)
[2021-11-27 05:51] VITALS: BP 138/74; PULSE 80; RESP 17; TEMP 36.8; O2SAT 96
[2021-11-27] MEDS: PANTOPRAZOLE DR 40 MG TABLET PO (06:04)
--- NOTE | 2021-11-27 06:41 | PC.NURSE ---
Pt alert and oriented x4, pain at 4 to 8 this shift. Oxy 10 mg q 3 hour given with good results. Pt up to bedside commode this evening with FWW and gait belt x 5. Pt log rolling to move.
--- NOTE | 2021-11-27 07:38 | P.DS_ITS ---
History of Present Illness History of Present Illness Date Patient Seen: 11/27/21 Time Patient Seen: 07:38 Chief complaint: OPB Narrative: Operative Date/Time/Diagnoses Date of procedure: 11/25/21 Time of procedure: 07:45 Pre-op diagnosis: 1. L4-5 spondylolisthesis 2. L3-4, L4-5 spinal stenosis with neurogenic claudication Post-op diagnosis: same Procedure & Clinicians Procedure: 1. L3-4, L4-5 Postero-lateral and posterior interbody fusion 2. L3-4, L4-5 interbody cage placement. 3. L3-4, L4-5 decompressive laminectomy with bilateral facetecomies 4. L3-4, L4-5 Posterior segmental instrumentation 5. Anchorage of bone marrow from iliac crest 6. Utilization of microsurgical technique and operating microscope 7. Utilization of robotic assisted navigation Same procedure as scheduled: Yes Indications: Patient has been having chronic back pain and worsening lumbar radiculopathy. Patient failed multiple conservative management with worsening pain weakness and numbness in her lower extremity.? Patient has been having difficulty performing activity of daily living.? After discussing risks benefits of treatment options, patient elected proceed with surgery. Surgeon: Mohit Chatterjee Slurry Blender: Mimi Sanders Click Yes if Unassisted: No Anesthesia Type: General Operative Notes Closure Type: primary Specimen(s): none sent Prosthetic devices, grafts, tissues, transplants, or devices: Globus CREO MIS screws, Rise cages Applied: catheter Estimated Blood Loss (mL): 250 Blood products transfused: none Discharge Providers Provider Date of admission: 11/26/21 13:00 Discharge Date: 11/27/21 Primary care physician: Julius León MD Consults: 11/25/21 14:15 Consult to Occupational Therapy Evaluate & Treat Comment: Physician Instructions: Evaluate and treat Consult to Physical Therapy Evaluate & Treat Comment: Physician Instructions: Evaluate and Treat 11/25/21 16:00 Consult to Respiratory Therapy Evaluate & Treat Comment: CPAP ordered. does not use. Physician Instructions: Evaluate and treat Discharge provider: Jennifer Cabrales PA-C Summary Hospital Course Discharge Diagnosis: s/p lumbar fusion Hospital Course: Mr Guzman'gt hospital course was unremarkable. On POD# 2 he was feeling well and wanted to go home. He was eating and voiding without difficulty or assistance. His pain was well-controlled with oral medication. He was evaluated by PT and was ambulating with the help of a front-wheeled walker. Exam Vital Signs (past 8 hours): - 11/27/21 02:00 11/27/21 05:51 Temperature 98.8 F 98.3 F Pulse Rate 89 80 Respiratory Rate 17 17 Blood Pressure 132/67 138/74 Pulse Oximetry 94 96 Oxygen Delivery Method Room Air Oxygen Flow Rate 0 Narrative Exam Narrative: 5/5 strength in hip flexors, quadriceps, hamstrings, DF, PF, EHL bilaterally. Sensation to light touch intact throughout BLE. Calves soft, compressible, nontender and without palpable cords or masses. Const General: cooperative and healthy appearing Orientation: alert, awake and oriented x3 Objective Labs Result Diagrams: 11/26/21 04:05 PFS Medical History Acid reflux Arthritis Easy bruisability Macular degeneration of right eye CHRISTIAN (obstructive sleep apnea) Prostate cancer (2016) Surgical History History of prostatectomy (2015) Hx of bilateral cataract extraction Hx of hernia repair Hx of tonsillectomy S/P epidural steroid injection Social History household members: spouse Smoking Status: Former smoker alcohol intake: current Discharge Assessment & Plan Assessment and Plan Assessment: POD# 2 s/p L3-4, L4-5 transforaminal lumbar interbody fusion w/ posterolateral instrumentation. Acute anemia d/t expected surgical blood loss. Plan of Treatment: Discharge home, multimodal pain management. Discharge Plan Discharge Plan Patient Disposition: Home Discharge orders & Medications Prescriptions: New docusate sodium 100 mg Capsule 100 mg PO BID PRN (Reason: constipation) Qty: 60 2RF hydroxyzine pamoate 25 mg Capsule 25 mg PO Q4HR PRN (Reason: muscle spasm) Qty: 120 1RF oxycodone 5 mg Tablet 10 mg PO Q4H PRN (Reason: Pain, Severe (7-10)) Qty: 60 0RF (DME) walker Misc See Rx Instructions .Route Qty: 1 0RF Rx Instructions: As directed Continued acetaminophen 500 mg Tablet 2,000 mg PO BID 0RF pantoprazole 40 mg Tablet,Delayed Release (Dr/Ec) 40 mg PO DAILY 0RF ibuprofen 200 mg Tablet 800 mg PO DAILY 0RF Lactobacillus acidophilus 500 million cell Tablet 1,000 mmu cells PO DAILY 0RF omega-3 fatty acids-fish oil 684-1,200 mg Capsule,Delayed Release(Dr/Ec) 1 cap PO DAILY 0RF Men 50 Plus Multivitamin 300-600-300 mcg Tablet 1 tab PO DAILY 0RF Macular Health Formula 5-1-7.5 mg Capsule 1 cap PO DAILY 0RF Follow up/Referrals: Mohit Chatterjee MD [Physician] - As previously scheduled (Follow up with Mimi Sanders PA-C, on 12/10/2021 @ 1:00 pm at [facility] office in [place].) Julius León MD [Primary Care Provider] - Diet/Activity/Treatments Diet: Diet as Tolerated Activity: Walk frequently. No deep bending (> 90 degrees) or twisting at the waist. No lifting > 20 pounds. Skin/Wound/Dressing Care Report to your healthcare provider any signs of infection, such as:: chills, fever, night sweats, unusual drainage and unusual redness Dressing: May shower. Keep dressing as dry as possible - may change if it becomes wet inside. No bathing or otherwise soaking incisions. Do not apply any creams, lotions, or ointments to incisions. Visit Report/Discharge Packet Instructions: DI for Prescription Opioid Use, DI for Transforaminal Lumbar Interbody Fusion Stand Alone Forms: Surgery Discharge Discharge Data Primary Care Provider: Julius León Attending Provider: Mohit Chatterjee
[2021-11-27 07:45] VITALS: BP 118/76; PULSE 77; RESP 16; TEMP 36.1; O2SAT 95
[2021-11-27] MEDS: FISH OIL 1,000 MG CAPSULE 1000 MG PO (09:02)
[2021-11-27] MEDS: DOCUSATE 100 MG CAPSULE PO (09:02)
[2021-11-27] MEDS: LACTOBACILLUS ACIDOPHILUS TABLET 1 EACH PO (09:02)
--- NOTE | 2021-11-27 10:45 | PT.IPTN ---
Current Diagnoses Spondylolisthesis, lumbar region (11/26/21) Spinal stenosis, lumbar region with neurogenic claudication (11/26/21) Arthrodesis status (11/26/21) Surgery Performed Operation Date: 11/25/21 07:45 Actual Procedures p L3-4, L4-5 TLIF w. posterior instrumentation-Robot(Not Applicable) - Mohit Chatterjee MD Physical Therapy Treatment Note M2 PT-IP Current Condition Start: 11/26/21 12:29 Freq: NEEDED Status: Discharge Protocol: Document 11/26/21 09:40 AB (Rec: 11/26/21 12:42 AB [id number]) Physical Therapy Current Condition Current Condition Evaluation Date 11/26/21 Treatment Diagnosis s/p L3-4, L4-5 TLIF; difficulty in walking Onset Date 11/25/21 M3 PT-IP Subjective Start: 11/26/21 12:29 Freq: NEEDED Status: Discharge Protocol: Document 11/27/21 10:20 KS (Rec: 11/27/21 12:13 KS [id number]) Subjective Physical Therapy Visit Type Type Treatment Note Visit Start Time 10:20 Visit Stop Time 10:45 Total Visit Minutes 25 Notes Pts present for caregiver training. Number of FINANCIAL SERVICES REP Visits 2 Physical Therapy Visit Comments Patient Comments agreeable to do PT M4 PT-IP Mobility and Gait Start: 11/26/21 12:29 Freq: NEEDED Status: Discharge Protocol: Document 11/27/21 10:20 KS (Rec: 11/27/21 12:13 KS [id number]) PT-Bed Mobility Assessment Rolling Type of Rolling Log Rolling Level of Assist Standby Assistance Supine to Sit Supine to Sit Contact Guard Assistance Sit to Supine Sit to Supine Minimal Assistance,1 Person Assistance Scooting Scooting to Edge of Bed Standby Assistance PT-Transfer Assessment Sit to and From Stand Sit to and from Stand Contact Guard Assistance,1 Person Assistance,Use of Upper Extremities Equipment Transfer Assistive Device Gait Belt,Front Wheeled Walker Orthotic/Prosthetic Devices or Brace: No Transfers Transfer Destination Bed,Chair Transfer Technique Pt ambulated w/ FWW Transfer Ability Level of Assist Contact Guard Assistance, Minimal Assistance,1 Person Assistance,Use of Upper Extremities Comments Mobility Comments Pt in chair and in room upon arrival. Demonstrated gait belt application and FWW guarding to pts . Pt sit<> stand w/ FWW CGA. He then ambulated ~50 ft around room and then performed logroll into and out of bed. He required Min A from his to elevate his legs into bed. He then transferred to chair CGA. Pt and state they feel safe to go home. Pt intends on sleeping in recliner and states he will not perform stairs for some time. Gait Assessment Gait Gait Assistance Required: Contact Guard Assist,1 Person Assist Distance (Feet) 50 Able to Maintain Weight Bearing Status Yes During Gait Assistive Devices Assistive Device Gait Belt,Front Wheeled Walker Orthotic/Prosthetic Devices or Brace: No Gait Deviations General Gait Pattern Antalgic,Decreased Stride Length Factors Limiting Gait Function Factors Limiting Gait Function Decreased Activity Tolerance, Decreased Strength,Limited Range of Motion,Pain,Poor Balance,Poor Safety Awareness Comments Gait Comments Please refer to mobility section for details. Stair Climbing Assessment Comments Stair Climbing Comments Not assessed - pt has 15 steps at home but does not need to complete them to access main level, shower, etc. PT-Balance Assessment Sitting Balance and Reactions Static Sitting Balance Ability Good Dynamic Sitting Balance Ability Good Standing Balance and Reactions Static Standing Balance Ability Good Dynamic Standing Balance Ability Fair Device Used FWW M5 PT-IP Objective Assessments Start: 11/26/21 12:29 Freq: NEEDED Status: Discharge Protocol: Document 11/26/21 09:40 AB (Rec: 11/26/21 12:42 AB [id number]) Orientation Orientation/Cognition Level of Alertness Alert Orientation Name,Place,Situation Safety Awareness Decreased Safety Awareness Memory Description No Deficits Noted Gross Range of Motion Lower Extremity ROM Assessment Within Functional Limits Strength Lower Extremity Strength Assessment Bilaterally Impaired Comments Strength Comments LLE: 4-/5 RLE: 3+/5 Muscle Tone Muscle Tone WNL Yes M6 PT-IP Treatment Start: 11/26/21 12:29 Freq: NEEDED Status: Discharge Protocol: Document 11/27/21 10:20 KS (Rec: 11/27/21 12:13 KS [id number]) Physical Therapy Treatment Education Education Provided Precautions,Weight Bearing Status,Post-Op Packet,Safety Other Treatments Other Treatment Performed Caregiver training. M7 PT-IP Assessment and Plan Start: 11/26/21 12:29 Freq: NEEDED Status: Discharge Protocol: Document 11/27/21 10:20 KS (Rec: 11/27/21 12:13 KS [id number]) PT Summary Assessment and Plan Potential Rehabilitation Potential Fair Status of Condition at Evaluation Evolving Summary Impairments Pain,ROM,Strength,Balance, Coordination,Sensation,Tone, Cognition,Bed Mobility, Transfers,Gait,Activity Tolerance Assessment Summary Pt able to recall 3/3 spinal precautions, perform logroll SBA, sit<>stand CGA and ambulated ~50 ft w/ FWW CGA. He still requires Min A for LE elevation into bed, which his was able to provide. Pt reports he will sleep in recliner and has no need to perform stairs at home for a while. He and his feel safe to return home. FWW dispensed for home use. Goals Bed Mobility Goal Independent Transfer Goal Independent,Front Wheeled Walker Gait Goal Independent,Front Wheel Walker Gait Distance 200 Other Goals up/down 15 steps L rail ascending SBA Days to Meet Goals 10 Frequency of Treatment Frequency Of Treatment Twice a Day Treatment Plan Physical Therapy Treatment Plan Bed Mobility Training,Transfer Training,Gait Training, Therapeutic Exercise,Balance Retraining,Post Op Education, Discharge Planning,Hot or Cold Pack,Neuromuscular Re-ed, Coordination Retraining,Manual Therapy Precautions Lumbar Precautions Log Roll,No Twisting,Limit Bending,Lifting Restriction of 10 lbs,Gait Belt above Incisional Area Recommendations To Nursing Amount of Assist Needed 2 Person Assist Discharge Recommendations PT Discharge Recommendations Home with 16/03 Assist Available,Home Health,SNF Rehab,Home vs SNF Transportation Needs at Discharge Private Vehicle,Wheelchair/ Cabulance
--- NOTE | 2021-11-27 11:12 | PC.NURSE ---
Pt showered with OT and dsg was changed to Coversite. Incision and adore intact
--- NOTE | 2021-11-27 11:18 | OT.IP.TRT ---
Current Diagnoses Spondylolisthesis, lumbar region (11/26/21) Spinal stenosis, lumbar region with neurogenic claudication (11/26/21) Arthrodesis status (11/26/21) Surgery Performed Operation Date: 11/25/21 07:45 Actual Procedures p L3-4, L4-5 TLIF w. posterior instrumentation-Robot(Not Applicable) - Mohit Chatterjee MD Occupational Therapy Treatment Note M2 OT-IP Current Condition Start: 11/26/21 12:05 Freq: Status: Active Protocol: Document 11/26/21 11:34 [facility] (Rec: 11/26/21 12:22 [facility] [id number]) Occupational Therapy Current Condition Current Condition Evaluation Date 11/26/21 Treatment Diagnosis S/p L3-4, L4-5, decreased mobility Diagnosis Onset Date 11/25/21 Post Operative Precautions Lumbar Precautions Log Roll,No Twisting,Limit Bending,Lifting Restriction of 10 lbs,Gait Belt above Incisional Area M3 OT- IP Subjective and Pain Start: 11/26/21 12:05 Freq: Status: Active Protocol: Document 11/27/21 11:20 [facility] (Rec: 11/27/21 11:34 [facility] [id number]) OT- Subjective Occupational Therapy Visit Type Type Treatment Note Visit Start Time 10:40 Visit Stop Time 11:18 Total Visit Minutes 38 Occupational Therapy Visit Comments Patient Comments Pt wanting to shower and pt's present for caregiver training. Patient/Caregiver Goals TO go home. OT Pain Assessment Pain When Pain Assessed At Rest Pain Present Pain Present Denied Pain M4 OT- IP ADL's Start: 11/26/21 12:05 Freq: Status: Active Protocol: Document 11/27/21 11:20 [facility] (Rec: 11/27/21 11:34 [facility] [id number]) OT ZBS-Esyx-Twlvoig General Evaluation Self-Feeding Ability Independent OT ADL-Oral Care Comments Oral Care Comments Pt able recall that he can either spit into a cup or just hinge at his hips in order to best follow his back precautions. OT ADL-Dressing General Eval Lower Body Dressing Ability Minimal Assistance Areas Needing Assistance Shoes Comments OT Dressing Comments Pt able to use the triage clinician to bon his brief and pants with increased time. Pt's having to assist to help slide his slipper snug over his feet. . Pt has ordered and triage clinician and sock aid for home use. OT ADL-Bathing General Evaluation Bathing Ability Minimal Assistance Areas Needing Assistance Wash/Dry Back Comments OT Bathing Comments Pt has order a shower chair for home use. M5 OT- IP IADL's Start: 11/26/21 12:05 Freq: Status: Active Protocol: Document 11/26/21 11:34 [facility] (Rec: 11/26/21 12:22 [facility] [id number]) OT-Instrumental Activities of Daily Living Home Safety Awareness Home Safety Comments Pt will be at home to assist pt for needs. M6 OT- IP Functional Cognition Start: 11/26/21 12:05 Freq: Status: Active Protocol: Document 11/27/21 11:20 [facility] (Rec: 11/27/21 11:34 [facility] [id number]) Cognitive Factors Limiting Selfcare Function Cognitive Comments Cognitive Assessment Comments Pt a little impulsive at times but does end up able to stop himself before trying to bend, lift, or twist during functional mobility or ADL needs. M7 OT- IP Mobility and Balance Start: 11/26/21 12:05 Freq: Status: Active Protocol: Document 11/27/21 11:20 [facility] (Rec: 11/27/21 11:34 [facility] [id number]) OT-Transfer Assessment Sit to and From Stand Sit to and from Stand Standby Assistance,Minimal Assistance Transfers Transfer Ability Contact Guard Assistance Technique Transfer Destination Bed,Shower Stall Transfer Technique Stand Step Pivot Devices Transfer Assistive Devices Gait Belt,Front Wheeled Walker Comments Mobility Comments Much improved with transfers and able come to stand with SBA to NICA. Pt 's able to safely assist pt for transfer and mobility needs. Pt states now wanting to get a FWW from the hospital and [employer] able to take care of the orders and set-up for the FWW. OT- Balance Assessment Sitting Balance and Reactions Static Sitting Balance Ability Normal Dynamic Sitting Balance Ability Good Standing Balance and Reactions Static Standing Balance Ability Good Dynamic Standing Balance Ability Fair M8 OT- IP Objective Assessments Start: 11/26/21 12:05 Freq: Status: Active Protocol: Document 11/26/21 11:34 [facility] (Rec: 11/26/21 12:22 [facility] [id number]) OT-Muscle Tone Assessment Muscle Tone WNL Yes M9 OT- IP Assessment and Plan Start: 11/26/21 12:05 Freq: Status: Active Protocol: Document 11/27/21 11:20 [facility] (Rec: 11/27/21 11:34 [facility] [id number]) OT Summary Assessment and Plan Potential Rehabilitation Potential Good Analytic Complexity at Evaluation Low Summary Progress Towards Goals Progressing Toward Goals Assessment Summary Pt's able to participate in caregiver training and able to safely assist pt for all ADL and mobility needs. Pt has ordered sock aid, triage clinician, and shower chair for home use . FWW was issued to pt. Pt to have assist at home from his supportive . Goals Days to Meet Goals 5 Frequency of Treatment Frequency Of Treatment Once a Day Discharge Recommendations OT Discharge Recommendations Home with Assistance Transportation Needs at Discharge Private Vehicle
--- NOTE | 2021-11-27 11:42 | PC.NURSE ---
Pt is dressed and ready for discharge home with Spouse. IV has been removed, Pt has showered and been cleared by PT/OT, and dsg to back has been changed. Went over d/c instructions with Pt and Spouse-discussed d/c meds, time of last dose, reviewed stroke education, encouraged Pt to follow back precautions, no driving while on narcotics, drink plenty of fluids to prevent constipation or dehydration, and to follow up as directed. Pt denies questions and was taken out via w/c by [employer] to POV with Spouse and all belongings.
== END 2021-11-27 11:47 | disposition home or self-care (01) ==
LOC: OR 14:40 → AC 14:40
PROVIDERS: Admitting Provider Orthopaedic Surgery Orthopaedic Surgery of the Spine; PCP Family Medicine; Referring Provider Orthopaedic Surgery Orthopaedic Surgery of the Spine; Visit Provider Orthopaedic Surgery Orthopaedic Surgery of the Spine
PROC: (CPT 20939; principal; 2021-11-25 07:45)
DX: M48.062 Spinal stenosis, lumbar region with neurogenic claudication (principal); M43.16 Spondylolisthesis, lumbar region; K21.9 Gastro-esophageal reflux disease without esophagitis; G47.33 Obstructive sleep apnea (adult) (pediatric)
CPT/HCPCS: 20939; 22633; 22634; 22853 ×2; 22842; 63052; 63053; 36415; 72100; 76000; 85014; 85018; 97116; 97162; 97165; 97530; 97535; G0378; A9270; C9290; J0171; J0330; J0690; J1100; J1170; J2250; J2405; J2704; J3010; J3410

== ENCOUNTER → 2023-04-28 12:54 | Outpatient (CLI) | payer OTHER, SELFPAY ==
[2021-11-25 14:42] VITALS: BMI 28.0
--- NOTE | 2023-04-28 | DI.MRI.S_ITS ---
PROCEDURE: MR SHOULDER RT WO CON INDICATIONS: shoulder pain TECHNIQUE: Noncontrast oblique coronal T2 fast spin echo with fat saturation, oblique sagittal T1 spin echo and T2 fast spin echo with fat saturation, axial T1 spin echo and T2 fast spin echo with fat saturation through the shoulder. COMPARISON: [facility] [place], CR, XR SHOULDER 2+ VIEWS RIGHT, 04/09/2023, 14:12. FINDINGS: Image quality: Excellent. Rotator cuff: Moderate grade articular surface partial-thickness tear involving distal supraspinatus at its insertion on the humeral head is seen extending to musculotendinous junction. Low-grade articular surface partial-thickness tear involving distal infraspinatus at its insertion on the humeral head is seen. Distal subscapularis tendinosis is noted. No full-thickness rotator cuff tendon rupture. Sagittal images demonstrate no significant rotator cuff muscle atrophy. Bones and bursae: There is severe glenohumeral joint osteoarthritis and moderate acromioclavicular joint osteoarthritis. Marrow edema involving glenoid is seen with internal linear hypointense signal concerning for subtle subcortical fracture. No cortical disruption is seen. Extensive subcortical cystic changes are noted in superior and lateral aspect of humeral head. Moderate to large subacromial subdeltoid bursal fluid and subcoracoid bursal fluid is seen. No gross loose bodies. Capsule and soft tissues: Extensive signal abnormality throughout right shoulder labrum is noted suggestive of extensive labral tear. The long head of the biceps tendon appears thickened with intrasubstance T2 hyperintense signal. The rotator interval appears normal, without fibrosis. The coracohumeral ligament is normal in thickness. IMPRESSION: 1. Severe glenohumeral joint osteoarthritis with subtle linear hypointense signal involving glenoid and adjacent edema concerning for subtle subcortical fracture/insufficiency fracture. No cortical disruption. No other fracture or dislocation. 2. Moderate acromioclavicular joint osteoarthritis. 3. Moderate to large amount of subacromial subdeltoid bursal fluid and subcoracoid bursal fluid. No gross loose bodies. 4. Moderate grade articular surface partial-thickness tear involving distal supraspinatus extending to musculotendinous junction. Low-grade articular surface partial-thickness tear involving distal infraspinatus. Distal subscapularis tendinosis. No full-thickness rotator cuff tendon rupture. 5. Suggestion of extensive right shoulder labral tear. 6. Proximal long head of biceps tendinosis. Dictated by: Narendra Silver M.D. on 04/28/2023 at 15:47 Approved by: Narendra Silver M.D. on 04/28/2023 at 16:00
== END ==
PROVIDERS: PCP Family Medicine; Referring Provider Orthopaedic Surgery; Visit Provider Orthopaedic Surgery
DX: M75.111 Incomplete rotator cuff tear or rupture of right shoulder, not specified as traumatic (principal); M19.011 Primary osteoarthritis, right shoulder
CPT/HCPCS: 73221

== ENCOUNTER → 2023-05-18 14:48 | Outpatient (CLI) | payer OTHER, SELFPAY ==
[2021-11-25 14:42] VITALS: BMI 28.0
--- NOTE | 2023-05-18 | DI.CT.S_ITS ---
PROCEDURE: CT HEAD/BRAIN WO CON INDICATIONS: Dizziness and giddiness TECHNIQUE: Noncontrast 4.5 mm thick angled axial sections acquired from the foramen magnum to the vertex, with coronal and sagittal reformats. For radiation dose reduction, the following was used: automated exposure control, adjustment of mA and/or kV according to patient size. COMPARISON: None. FINDINGS: Image quality: Mild streak artifact can be seen through the skull base. CSF spaces: Basal cisterns are patent. No extra-axial fluid collections. The ventricles are symmetric in size and shape. Brain: No intracranial bleeds or masses. There is cerebral volume loss for age, with resultant ventricular and sulcal prominence. There are periventricular and deep white matter chronic small vessel ischemic changes. At least 1 remote lacunar infarct can be seen involving the deep white matter on each side, left worse than right. There is intracranial internal carotid artery atherosclerosis. Skull and face: Calvarium and visualized facial bones appear intact, without suspicious lesions. Sinuses: Visualized sinuses and mastoids are clear. IMPRESSION: No imaging explanation is found for this patient's presenting symptoms. Remote bilateral lacunar infarcts involving the deep white matter. Dictated by: Jefferson Hall M.D. on 05/18/2023 at 14:32 Approved by: Jefferson Hall M.D. on 05/18/2023 at 14:33
--- NOTE | 2023-05-18 | DI.US.S_ITS ---
PROCEDURE: US CAROTID DOPPLER BI INDICATIONS: DIZZINESS AND GIDDINESS TECHNIQUE: Color and pulse Doppler interrogation was performed of both carotid systems, with image documentation and velocity measurements. COMPARISON: [facility], CT, CT HEAD/BRAIN WO CON, 05/18/2023, 14:51. FINDINGS: Stenosis calculations are based on SRU (Society of Radiologists in Ultrasound) criteria. The flow velocities and the arterial waveforms are normal within both carotid arterial systems. Soft plaque can be seen involving the right carotid bifurcation. The estimated degree of internal carotid artery stenosis is less than 50%. Antegrade flow is confirmed within both vertebral arteries. Incidental note is made of left thyroid nodules that measure up to 1.1 cm. IMPRESSION: No hemodynamically significant stenosis is seen. Focal soft plaque can be seen involving the right carotid bifurcation region. Left thyroid nodules are seen. By published criteria, no specific imaging follow-up is recommended in a patient of this age. Dictated by: Jeffreson Hall M.D. on 05/18/2023 at 14:43 Approved by: Jefferson Hall M.D. on 05/18/2023 at 14:45
== END ==
PROVIDERS: PCP Family Medicine; Referring Provider Family Medicine; Visit Provider Family Medicine
DX: I65.21 Occlusion and stenosis of right carotid artery (principal); E04.2 Nontoxic multinodular goiter; R42 Dizziness and giddiness; Z86.73 Personal history of transient ischemic attack (TIA), and cerebral infarction without residual deficits
CPT/HCPCS: 70450; 93880

== ENCOUNTER → 2023-06-25 09:44 | Outpatient (CLI) | payer OTHER, SELFPAY ==
[2021-11-25 14:42] VITALS: BMI 28.0
--- NOTE | 2023-06-25 09:49 | DI.CT.S_ITS ---
PROCEDURE: CT UE RT WO CON INDICATIONS: GLENOHUMERAL ARTHRITIS TECHNIQUE: Noncontrast 1-1.5 mm thick sections acquired from the acromioclavicular joint to the inferior scapula, with coronal and sagittal reformatting. COMPARISON: None. FINDINGS: Image quality: Excellent. Bones: Moderate acromioclavicular joint osteoarthritic changes are seen with joint space narrowing, subchondral sclerosis and downward osteophyte formation depressing on musculotendinous junction of supraspinatus. Severe glenohumeral joint osteoarthritis is noted with complete loss of joint space, extensive subchondral sclerosis and cystic changes and prominent marginal osteophyte formation. Subcortical cystic changes also noted in greater tuberosity of humeral head near rotator cuff tendon insertion. No suspicious bony lesion. No acute fracture or dislocation. Visualized right upper ribs are intact. Soft tissues: There is no full-thickness rotator cuff tendon rupture. No significant rotator cuff muscle atrophy is seen on sagittal images. Moderate amount of joint effusion, subacromial subdeltoid bursal fluid and subcoracoid bursal fluid is seen. No definite calcified intra-articular loose bodies. No abnormal soft tissue calcifications. Visualized bilateral lung mancilla are clear. IMPRESSION: 1. Severe glenohumeral joint osteoarthritis and moderate acromioclavicular joint osteoarthritis. No shoulder fracture or dislocation. No suspicious bony lesions. 2. No full-thickness rotator cuff tendon rupture. No significant rotator cuff muscle atrophy. 3. Moderate joint effusion, subacromial subdeltoid bursal fluid and subcoracoid bursal fluid. No calcified loose bodies. No abnormal soft tissue calcifications. Dictated by: Narendra Silver M.D. on 06/25/2023 at 13:24 Approved by: Narendra Silver M.D. on 06/25/2023 at 13:30
== END ==
PROVIDERS: PCP Family Medicine; Referring Provider Orthopaedic Surgery; Visit Provider Orthopaedic Surgery
DX: Z01.812 Encounter for preprocedural laboratory examination (principal); M19.011 Primary osteoarthritis, right shoulder; Z01.818 Encounter for other preprocedural examination; M25.411 Effusion, right shoulder
CPT/HCPCS: 73200; 93005

== ENCOUNTER → 2023-07-15 14:50 | Outpatient (CLI) | payer OTHER, SELFPAY ==
[2021-11-25 14:42] VITALS: BMI 28.0
--- NOTE | 2023-07-15 | DI.US.S_ITS ---
PROCEDURE: US THYROID INDICATIONS: THYROID NODULE TECHNIQUE: Real-time scanning was performed of the thyroid gland, with image documentation. COMPARISON: None. FINDINGS: Right: Thyroid lobe measures 5.1 x 2.1 x 1.9 cm, and is homogeneous in echotexture. Left: Thyroid lobe measures 4.4 x 1.8 x 1.3 cm, and is homogenous in echotexture. Isthmus: 0.3 mm thick. Nodule number: 1 Location: Right medial midpole Size: 0.9 x 0.9 x 0.3 cm. Composition: Solid Echogenicity: Hypoechoic Shape: wider than tall. Margins: Smooth Echogenic foci: None Total points: 4 ACR TI-RADS category: 4, moderately suspicious: FNA if greater than 1.5 cm. Follow if greater than 1.0 cm at 1, 2, 3, and 5 years. Nodule number: 2 Location: Left midpole Size: 0.9 x 0.8 x 0.5 cm. Composition: Solid Echogenicity: Hypoechoic Shape: wider than tall. Margins: Smooth Echogenic foci: None Total points: 4 ACR TI-RADS category: 4, moderately suspicious: FNA if greater than 1.5 cm. Follow if greater than 1.0 cm at 1, 2, 3, and 5 years. Nodule number: 3 Location: Left inferior pole Size: 0.7 x 0.8 x 0.6 cm. Composition: Solid Echogenicity: Isoechoic Shape: wider than tall. Margins: Smooth Echogenic foci: Punctate Total points: 8 ACR TI-RADS category: 5, highly suspicious: FNA if greater than 1.0 cm. Follow if greater than 0.5 cm at 1, 2, 3, and 5 years. IMPRESSION: . Subcentimeter nodulesTI-RADS 4 and 5 as above. Recommend follow-up at 1, 2, 3, and 5 years for the left inferior pole nodules. ACR TI-RADS definitions and recommendations: TI-RADS 1 (benign): 0 points. FNA not needed. TI-RADS 2 (not suspicious): 2 points. FNA not needed. TI-RADS 3 (mildly suspicious): 3 points. * FNA if 2.5 cm or larger, follow up if 1.5 cm or larger (at 1, 3, and 5 years). TI-RADS 4 (moderately suspicious): 4-6 points. * FNA if 1.5 cm or larger, follow up if 1 cm or larger (at 1, 2, 3, and 5 years). TI-RADS 5 (highly suspicious): 7 points or more. * FNA if 1 cm or larger, follow up if 0.5 cm or larger (every year for 5 years). Dictated by: Alex Barnes M.D. on 07/15/2023 at 16:17 Approved by: Alex Barnes M.D. on 07/15/2023 at 16:22
== END ==
PROVIDERS: PCP Family Medicine; Referring Provider Family Medicine; Visit Provider Family Medicine
DX: E04.2 Nontoxic multinodular goiter (principal)
CPT/HCPCS: 76536

== ENCOUNTER 2023-09-08 08:30 | Inpatient (IN) | payer OTHER, SELFPAY ==
[2021-11-25 14:42] VITALS: BMI 28.0
[2023-08-31 12:53] VITALS: BMI 28.5
[2023-09-08] VITALS (8 sets, daily range): BP systolic 95–123; BP diastolic 62–80; PULSE 66–84; RESP 10–16; TEMP 36.3–36.9; O2SAT 92–98; BMI 27.4
--- NOTE | 2023-09-08 06:00 | DI.RAD.S_ITS ---
PROCEDURE: XR SHOULDER RT 1V INDICATIONS: TSA TECHNIQUE: 1 views of the shoulder were acquired. COMPARISON: [facility], CR, XR SHOULDER LT MIN 2V, 09/10/2020, 13:31. [facility], CT, CT UE RT WO CON, 06/25/2023, 9:55. FINDINGS: Postoperative right shoulder arthroplasty. There is good anatomic alignment. Soft tissues demonstrate postsurgical change. IMPRESSION: Right shoulder arthroplasty. Dictated by: Danielle Mancilla M.D. on 09/08/2023 at 17:49 Approved by: Danielle Mancilla M.D. on 09/08/2023 at 17:51
[2023-09-08] MEDS: ACETAMINOPHEN 325 MG TABLET 975 MG PO (09:39)
[2023-09-08] MEDS: LACTATED RINGERS 1,000 ML 42 ML IV ×2 (09:39→11:43)
--- NOTE | 2023-09-08 09:53 | PM.PREOP ---
Pre-operative Note Interval Note History & Physical reviewed/Exam performed by Physician: Yes Changes to H&P: No
--- NOTE | 2023-09-08 09:57 | SUR.OPER ---
Beach chair with Wayne shoulder positioner. Lower body on padded OR bed. Head in foam padded head cradle, secured with straps. Non-operative arm secured across chest and padded. Pillow under knees. Safety belt at thigh. Cloth tape over blanket over lower legs.
--- NOTE | 2023-09-08 10:24 | SUR.PREOP ---
Block start time 1013 with a time out. Monitoring initiated and maintained throughout procedure. Oxygen and medications given per anesthesiologist instructions. Patient remained stable throughout procedure, no adverse reactions noted. Block end time 1020.
[2023-09-08] MEDS: CEFAZOLIN 2 GM/100 ML PREMIX 100 ML IV (10:25)
[2023-09-08] MEDS: TRANEXAMIC ACID 1,000 MG VIAL 1000 MG INJ (10:40)
--- NOTE | 2023-09-08 12:32 | P.OP_ITS ---
Operative Date/Time/Diagnoses Date of procedure: 09/08/23 Time of procedure: 12:52 Pre-op diagnosis: Right glenohumeral arthritis Post-op diagnosis: same Procedure & Clinicians Procedure: Right reverse total shoulder arthroplasty Same procedure as scheduled: Yes Indications: Indications: This is a who has rotator cuff arthropathy. Symptoms have been present for years, insidious onset. Patient has failed conservative therapy including injections, physical therapy, anti-inflammatories and activity modification. After extensive discussion in clinic, they wished to go forward with surgery. Risks and benefits were described including the risk of infection, bleeding, damage to internal structures including nerves. We also discussed the risk of failure of surgery and the need for revision surgery as well as the risk of anesthesia. The patient expressed understanding with these risks and wished to go forward with surgery. Surgeon: Nicola Benavides Site Technician: Jeffy Oakes Click Yes if Unassisted: No Anesthesia Type: General Operative Notes Findings: Findings: Osteoarthritis of the glenoid and humeral head as well as a defient rotator cuff as noted on preoperative imaging and under direct visualization Closure Type: primary Specimen(s): none sent Prosthetic devices, grafts, tissues, transplants, or devices: Tornier implants Base plate: 29 mm, full wedge Glenosphere: 39 mm Stem: Perform for Poly: +0 concentric Estimated Blood Loss (mL): 50 Blood products transfused: none Procedure in detail: Patient was seen in the preoperative holding unit. The correct right shoulder was identified and marked with my initials. Again we discussed the risks and benefits of surgery and they wished to go forward with surgery. The patient was brought back to the operating room and placed supine on the operating table. Smooth endotracheal intubation was performed by anesthesia. All prominences were padded and they were placed into the beach chair position. Intravenous antibiotics were given. The right shoulder was then prepped with the standard sterile preparation and draping. A time-out was then performed in my initials were again identified on the correct shoulder. 1 g of IV tranexamic acid was given. A standard deltopectoral incision was made. Skin flaps were made. The cephalic vein was identified and retracted laterally. This was protected throughout the remainder of the case. Sharp dissection was made along the deltoid, subacromial and subcoracoid space to release adhesions. The conjoined tendon was identified and the axillary nerve was palpated and continuous using the tug test. It was protected throughout the remainder of the case. A brown retractor was placed underneath the deltoid muscle and a darach retractor underneath the conjoint tendon. The anterior circumflex artery and associated veins on the lower border of the subscapularis were identified and tied off using 0-Vicryl. The biceps tendon was identified in the bicipital groove. This was released from its sheath, and taken from its origin on the glenoid and tied into the pectoralis tendon for a solid tenodesis. We then began a subscapularis peel. The kaiser bscapularis was tagged with an Ethibond suture. A 360 degree circumferential release of the subscapularis was performed with protection of the axillary nerve. The coracohumeral ligament was released at the base of the coracoid. The coracoacromial ligament was left intact. The shoulder was then dislocated. Osteophytes were removed using combination of rongeur and osteotome. The rotator cuff was noted to be insufficient. An intramedullary guide was used set at version of 30?. Using an oscillating saw a conservative humeral head cut was made. Impaction reamers were reamed up to a size 4 stem with a built-in angle 135?. A neck protector was placed. Attention was then turned to the glenoid. After retracting the humeral head posteriorly a circumferential release was performed of the capsule with protection of the axillary nerve. The labrum was then released starting at the biceps anchor and going around the rim a small amount of triceps was released from the inferior glenoid. A center guide pin was then placed using the guide, followed by Reamer. After adequate cartilage was removed the center drill hole was drilled and measured. The base plate was then implanted and screwed into place. The superior drill hole was drilled and filled in a nonlocking fashion, followed by the inferior and anterior holes in locking fashion, the posterior hole was also filled. A 36 standard glenosphere was then selected and screwed into place onto the base plate. Turning back to the humerus, the humeral head was delivered and trialed with a 0 concentric. The arm was taken through range of motion and this was felt to be stable. The trial was then removed and a dilute Betadine wash was then performed with 1 L of sterile saline. Before placing the final implant, drill holes were made in the bicipital groove for the subscapularis repair, and sutures were passed through the drill holes. The final stem was then impacted into the humerus. The shoulder was then reduced and again brought through range of motion and was felt to be stable. The interval was then closed using #2 Ethibond. The subscapularis was then repaired using a modified racking hitch with nice loupes. The deltopectoral interval was then closed with #2 Ethibond. The skin was closed with 2-0 PDS and Monocryl followed by Aquacel dressing. Patient was awoken from anesthesia and brought back to the postoperative recovery unit without issue. They were placed into a sling. Assisting participation: This operation could not have been safely performed (without compromising the technical results or length of the procedure) without the assistance of a skilled hand frame surgical elastic knitter. The hand frame surgical elastic knitter was medically necessary for proper positioning, retraction and manipulation of instruments, proper exposure, graft prep, and manipulation of tissue. Complications: none Post-operative Condition: stable Disposition: PACU Plan for aftercare: Postoperative instructions: Sling to remain on for 6 weeks. No external rotation past neutral for 6 weeks. Okay for the sling to come off for shower. Okay to shower over the Aquacel dressing. If any water gets underneath the dressing, remove the dressing. First postoperative visit in 2 weeks.
== END 2023-09-08 13:15 | disposition home or self-care (01) | DRG 483 ==
PROVIDERS: Admitting Provider Orthopaedic Surgery; PCP Family Medicine; Referring Provider Orthopaedic Surgery; Visit Provider Orthopaedic Surgery
PROC: 0RQJ0ZZ Repair Right Shoulder Joint, Open Approach (ICD-10-PCS; CPT 23472; principal; 2023-09-08 10:15)
DX: M19.011 Primary osteoarthritis, right shoulder (principal); Z87.891 Personal history of nicotine dependence
CPT/HCPCS: 64415; 73020; C1776; J0171; J0330; J0690; J1100; J1885; J2250; J2405; J2704; J3010

== ENCOUNTER → 2024-08-31 10:01 | Outpatient (CLI) | payer MEDICARE, SELFPAY ==
[2021-11-25 14:42] VITALS: BMI 28.0
--- NOTE | 2024-08-31 10:04 | DI.US.S_ITS ---
PROCEDURE: US THYROID INDICATIONS: DYSPHAGIA TECHNIQUE: Real-time scanning was performed of the thyroid gland, with image documentation. COMPARISON: [facility], US, US THYROID, 07/15/2023, 15:38. FINDINGS: Thyroid: Right lobe measures 5.0 x 1.9 x 1.5 cm. Left lobe measures 4.1 x 1.8 x 1.6 cm. Isthmus is 0.3 cm thick. Echotexture is homogeneous. Nodule number: 1 Location: Right midpole Size: 0.8 x 0.3 x 0.7 cm. Composition: Solid Echogenicity: Hypoechoic Shape: wider than tall. Margins: Smooth Echogenic foci: None Total points: 4 ACR TI-RADS category: TR 4 Nodule number: 2 Location: Left midpole Size: 1.1 x 0.6 x 0.9 cm. Composition: Solid Echogenicity: Isoechoic Shape: wider than tall. Margins: Smooth Echogenic foci: None Total points: 3 ACR TI-RADS category: TR 3 Nodule number: 3 Location: Left inferior pole Size: 0.7 x 0.6 x 0.4 cm. Composition: Solid Echogenicity: Isoechoic Shape: wider than tall. Margins: Smooth Echogenic foci: None Total points: 3 ACR TI-RADS category: TR 3 IMPRESSION: Thyroid nodules, which do not meet criteria for further follow-up. ACR TI-RADS definitions and recommendations: TI-RADS 1 (benign): 0 points. FNA not needed. TI-RADS 2 (not suspicious): 2 points. FNA not needed. TI-RADS 3: 3 points. * FNA if 2.5 cm or larger, follow up if 1.5 cm or larger (at 1, 3, and 5 years). TI-RADS 4: 4-6 points. * FNA if 1.5 cm or larger, follow up if 1 cm or larger (at 1, 2, 3, and 5 years). TI-RADS 5: 7 points or more. * FNA if 1 cm or larger, follow up if 0.5 cm or larger (every year for 5 years). Dictated by: Osorio Perkins M.D. on 08/31/2024 at 16:50 Approved by: Osorio Perkins M.D. on 08/31/2024 at 16:54
== END ==
LOC: US 10:03
PROVIDERS: PCP Family Medicine; Referring Provider Family Medicine; Visit Provider Family Medicine
DX: R13.10 Dysphagia, unspecified (principal); E04.2 Nontoxic multinodular goiter
CPT/HCPCS: 76536

== ENCOUNTER → 2025-02-13 11:08 | Outpatient (CLI) | payer MEDICARE, SELFPAY ==
[2021-11-25 14:42] VITALS: BMI 28.0
[2025-02-13 12:39] LABS: Estimated Glomerular Filt Rate > 60 mL/min (>60)
== END ==
PROVIDERS: PCP Family Medicine; Referring Provider Family Medicine; Visit Provider Family Medicine
DX: R13.10 Dysphagia, unspecified (principal)
CPT/HCPCS: 36415; 82565

== ENCOUNTER 2025-02-22 12:10 | Day surgery (SDC) | payer MEDICARE, SELFPAY ==
[2021-11-25 14:42] VITALS: BMI 28.0
--- NOTE | 2025-02-22 | PATH_ITS ---
[facility] Accession Number: [id number] No. of containers..01 Tissue . 01 Material submitted: . colon - LEFT COLON . 01 Diagnosis: LEFT COLON: Tubular adenoma. MRV 03/02/2025 1523 Local . 01 Electronically signed: . Alexandro Mcbride MD, PhD, Pathologist NPI- [id number] . 01 Gross description: . LEFT COLON: Received in formalin are 2 fragment(s) of contreras, soft tissue measuring 0.1 x 0.1 x 0.1 cm to 0.3 x 0.3 x 0.2 cm submitted entirely in 1 cassette(s) /ANDRE 03/01/2025 1752 Local . 01 Pathologist provided ICD-10: D12.6 . 01 CPT . 633044 Specimen Comment: A courtesy copy of this report has been sent to [phone] Performed at: [address] [facility] [address], [place], [place] [id number] MD Justin Dunaway MD Phone: [phone]
--- NOTE | 2025-02-22 12:29 | PM.OP.COLON ---
Operative Date/Time/Diagnoses Date of procedure: 02/22/25 Time of procedure: 13:24 Pre-op diagnosis: See indication and findings Post-op diagnosis: same Procedure & Clinicians Study performed: Colonoscopy Same procedure(s) as scheduled: Yes Indications: Colorectal cancer screening Surgeon: Arelis Tomlin Anesthesia Type: Other Procedure Notes Procedure in detail: After informed consent was obtained the patient was placed in left lateral decubitus position. The video colonoscope was placed in the rectum slowly advanced cecum. Preparation was good. On slow withdrawal mucosa was carefully examined. The scope was removed. The patient tolerated procedure well. Blood loss none Complications none Sedation mac Findings 1. 5 mm sessile polyp in the left colon Jumbo biopsy removed completely 2. Otherwise negative colonoscopy to cecum Will be in touch regarding his biopsies. If it is in fact adenomatous he probably should have follow-up colonoscopy in 5 years
[2025-02-22 12:34] VITALS: BP 142/76; PULSE 72; RESP 16; TEMP 36.4; O2SAT 96
[2025-02-22] MEDS: LACTATED RINGERS 1,000 ML 42 ML IV (12:44)
--- NOTE | 2025-02-22 13:03 | PM.HP.IH.1 ---
History of Present Illness History of Present Illness Date Patient Seen: 02/22/25 Chief complaint: SDC Narrative: Colon cancer screening [facility], [facility] Medical History (Updated 08/31/23 @ 13:19 by Danika Orantes RN) History of COVID-19 (04/2021) Lacunar infarction (05/18/23) Thyroid nodule (~05/2022) Easy bruisability Arthritis Prostate cancer (2016) Acid reflux [facility]RISTIAN (obstructive sleep apnea) Macular degeneration of right eye Surgical History (Updated 08/31/23 @ 13:10 by Danika Orantes RN) History of lumbar spinal fusion (12/05/21) S/P epidural steroid injection Hx of hernia repair History of prostatectomy (2015) Hx of tonsillectomy Hx of bilateral cataract extraction Social History household members: spouse Smoking Status: Former smoker alcohol intake: current Meds Home Medications and Allergies Home Medications ?Medication ?Instructions ?Recorded ?Confirmed ?Type ibuprofen 200 mg tablet 600 mg PO Q8H 11/20/21 02/22/25 History pantoprazole 40 mg tablet,delayed 40 mg PO DAILY 11/20/21 02/22/25 History release Lactobacillus acidophilus 500 1,000 mmu cells PO DAILY 11/25/21 08/31/23 History million cell tablet exxnvfcb-ooa-ubipmg 5 mg-zeaxanth 1 cap PO DAILY 11/25/21 08/31/23 History 1 mg-bilberry 7.5 mg-herbal capsule (Macular Health Formula) vpzpykkh-pn-wsxqe 300 mcg-K 60 1 tab PO DAILY 11/25/21 08/31/23 History mcg-lycop 600 mcg-lutein 300 mcg tablet (Men 50 Plus Multivitamin) omega-3 fatty acids-fish oil 684 1 cap PO DAILY 11/25/21 08/31/23 History mg-1,200 mg capsule,delayed release funmi #1 ea 11/27/21 Rx cetirizine 10 mg tablet 10 mg PO DAILY 08/31/23 02/22/25 History Allergies Allergy/AdvReac Type Severity Reaction Status Date / Time No Known Drug Allergies Allergy Verified 02/22/25 12:31 Exam Vital Signs (past 8 hours): - 02/22/25 12:34 Temperature 97.6 F Pulse Rate 72 Respiratory Rate 16 Blood Pressure 142/76 H Pulse Oximetry 96 Oxygen Delivery Method Room Air Oxygen Delivery Method Room Air Assessment & Plan Assessment & Plan narrative: Colon cancer screening need for colonoscopy. Risks, benefits, alternatives have been explained. Time-Based Coding :: [TOTAL MINUTES] spent with patient and on the chart (including review of chart, obtaining history, exam, reviewing outside data, placing orders, documenting exam and treatment plan, and counseling patient) on [DATE]. [employer] Document charge(s): No
[2025-02-22 13:27] VITALS: BP 108/63; PULSE 71; RESP 19; TEMP 36.5; O2SAT 98
[2025-02-22 13:33] VITALS: BP 111/67; PULSE 65; RESP 16; O2SAT 98
[2025-02-22 13:38] VITALS: BP 123/73; PULSE 70; RESP 20; O2SAT 98
== END 2025-02-22 13:53 | disposition home or self-care (01) ==
PROVIDERS: PCP Family Medicine; Referring Provider Internal Medicine Gastroenterology; Visit Provider Internal Medicine Gastroenterology
PROC: 0DJD8ZZ Inspection of Lower Intestinal Tract, Via Natural or Artificial Opening Endoscopic (ICD-10-PCS; CPT 45378; principal; 2025-02-22 13:30)
DX: Z12.11 Encounter for screening for malignant neoplasm of colon (principal); D12.4 Benign neoplasm of descending colon; G47.33 Obstructive sleep apnea (adult) (pediatric); K21.9 Gastro-esophageal reflux disease without esophagitis; Z85.46 Personal history of malignant neoplasm of prostate; Z87.891 Personal history of nicotine dependence; Z86.73 Personal history of transient ischemic attack (TIA), and cerebral infarction without residual deficits
CPT/HCPCS: 45380; J2704

== ENCOUNTER → 2025-03-02 09:41 | Outpatient (CLI) | payer MEDICARE, SELFPAY ==
[2021-11-25 14:42] VITALS: BMI 28.0
--- NOTE | 2025-03-02 09:42 | DI.CT.S_ITS ---
PROCEDURE: CT SOFT TISSUE NECK W CON INDICATIONS: Dysphagia, Cervicalgia TECHNIQUE: After the administration of intravenous contrast, 3.0 mm axial sections acquired from the sella to the aortic arch. Additional oblique axial 3.0 mm sections acquired through the pharynx. 3 mm thick coronal and sagittal reformats were generated. For radiation dose reduction, the following was used: automated exposure control. COMPARISON: None. FINDINGS: Image quality: Excellent. Lymph nodes: No enlarged lymph nodes seen throughout the neck. Vessels: Visualized vasculature appears patent. Neck spaces: The oropharynx, nasopharynx, and pharynx demonstrate no mucosal lesions. The vocal cords, false vocal cords, pyriform sinuses, epiglottis, vallecula, and tongue base all appear normal. Extramucosal spaces appear unremarkable. Glands: The parotid and submandibular glands appear normal. Thyroid gland demonstrates no significant abnormality. Miscellaneous: Visualized brain and orbits appear normal. Lung apices appear clear. Superficial soft tissues appear normal. Bones: No suspicious bony lesions. Partially visualized right shoulder arthroplasty. Multilevel degenerative changes of the spine. Visualized sinuses and mastoids appear unremarkable. IMPRESSION: No soft tissue abnormalities are appreciated. Degenerative changes of the spine. Dictated by: Jc Meléndez M.D. on 03/03/2025 at 13:54 Approved by: Jc Meléndez M.D. on 03/03/2025 at 13:57
== END ==
LOC: CT 09:41
PROVIDERS: PCP Family Medicine; Referring Provider Family Medicine; Visit Provider Family Medicine
DX: M54.2 Cervicalgia (principal); R13.10 Dysphagia, unspecified
CPT/HCPCS: 70491; Q9967